=== PATIENT | female | born 1970 | race Caucasian/White ===

== ENCOUNTER 2023-10-15 08:54 | Outpatient (REF) | payer BC, SELFPAY ==
--- NOTE | ~2023-10-15 | XR_ITS ---
EXAM: X-RAYS BILATERAL HIPS CLINICAL INFORMATION: Pain in unspecified hip. TECHNIQUE: AP view of the pelvis. AP and frog-lateral views of each hip. COMPARISON: None. FINDINGS: Right hip: Mild narrowing with degenerative changes. Mild degenerative changes in the right sacroiliac joint. Left hip: Mild narrowing with degenerative changes left hip. Small calcification in the soft tissues lateral to the left acetabular roof. Mild degenerative changes in the left sacroiliac joint. Degenerative changes in the imaged lower lumbar spine. XR/XR hip RT min 2V IMPRESSION: 1. Mild degenerative changes bilateral hips. 2. Mild degenerative changes in the bilateral sacroiliac joints. 3. Additional imaging with CT scan or MRI should be considered if there is clinical concern for fracture or other underlying pathology.
--- NOTE | ~2023-10-15 | XR_ITS ---
EXAM: X-RAYS BILATERAL HIPS CLINICAL INFORMATION: Pain in unspecified hip. TECHNIQUE: AP view of the pelvis. AP and frog-lateral views of each hip. COMPARISON: None. FINDINGS: Right hip: Mild narrowing with degenerative changes. Mild degenerative changes in the right sacroiliac joint. Left hip: Mild narrowing with degenerative changes left hip. Small calcification in the soft tissues lateral to the left acetabular roof. Mild degenerative changes in the left sacroiliac joint. Degenerative changes in the imaged lower lumbar spine. XR/XR hip LT min 2V IMPRESSION: 1. Mild degenerative changes bilateral hips. 2. Mild degenerative changes in the bilateral sacroiliac joints. 3. Additional imaging with CT scan or MRI should be considered if there is clinical concern for fracture or other underlying pathology.
== END 2023-10-15 08:55 | disposition home or self-care (01) ==
LOC: HO.HOSX 08:54
PROVIDERS: Visit Provider Physician Assistant
DX: M25.552 Pain in left hip (principal); M25.551 Pain in right hip
CPT/HCPCS: 73502

== ENCOUNTER 2023-10-15 10:57 | Outpatient (AMB) | payer BC, SELFPAY ==
--- NOTE | 2023-10-15 11:08 | A.OFFVIS_ITS ---
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 No hx of injury. Patient reports ongoing pain for about 6 months. She states that her pain is worse on the right than the left hip. Pain is more on the both sides of the glutes. She express that her right hip pain sometimes down her right knee. Patient finds relief with biofrezze. Allergies Penicillins Allergy (Unknown, Verified 10/15/23 11:21) Rash acetaminophen [From Vicodin] Allergy (Verified 10/15/23 11:21) Rash hydrocodone [From Vicodin] Allergy (Verified 10/15/23 11:21) Rash sulfamethoxazole [From Bactrim] Allergy (Verified 10/15/23 11:21) face itches trimethoprim [From Bactrim] Allergy (Verified 10/15/23 11:21) face itches HPI HPI GAMING HOST - B/L Hip pain: Details: 53-year-old female who presents in the office today, as a new patient, for an evaluation of bilateral hip pain. Patient reports no history of an injury to the bilateral hips. She states the pain has been ongoing for 6 months. She claims her pain is greater on the right hip than the left hip. Confirms pain on both sides of the glutes that radiates to her lower back. She states the right hip pain will radiate down to her right knee on one occasion. She finds relief with the use of Biofreeze. [facility] Social History (Updated 10/15/23 @ 11:24 by María Owens) Alcohol intake: current Alcohol intake frequency: holidays/special occasions only Patient Tobacco Use Status: Never used Tobacco Current occupational status: employed Current occupation: realtor Review of Systems Const All systems reviewed & are unremarkable except as noted in HPI and below Physical Exam Const General: cooperative and no acute distress Orientation/consciousness: patient oriented x3 Resp Effort & Inspection: normal respiratory effort and able to speak in complete sentences Cardio Peripheral pulses: Peripheral pulses 2+ throughout Skin General skin exam: no rashes or lesions noted Neuro General: patient oriented x3 Extrem Other: Bilateral hips: Normal to inspection. No ecchymosis, erythema, or edema. Full hip ROM in all planes. Tenderness to palpation over the bilateral greater trochanteric bursa. 5/5 strength with resisted hip flexion, knee extension, abduction, and abduction. Able to perform straight leg raise. NVI. Assessment & Plan Assessment & Plan (1) Lumbar radiculopathy: Code(s): M54.16 - Radiculopathy, lumbar region Category: Medical Plan Ms. Ramires is a 53-year-old female who presents in the office today, as a new patient, for an evaluation of bilateral hip pain. Patient reports no history of an injury to the bilateral hips. She states the pain has been ongoing for 6 months. She claims her pain is greater on the right hip than the left hip. Confirms pain on both sides of the glutes that radiates to her lower back. She states the right hip pain will radiate down to her right knee on one occasion. She finds relief with the use of Biofreeze. At this time, I feel that most of her pain is coming from her lower back, and this must be evaluated prior to further treatment of the bilateral hips. A refer ral to Physiatry was placed in the office today for further evaluation and treatment. Follow up will be PRN, or sooner if needed. X-rays of the pelvis which were obtained while in the office today and were reviewed by me, Shannan Ronquillo PA-C, revealed no acute fractures or dislocations. Orders: Orders XR hip LT min 2V 10/15/23 M25.559 - Pain in unspecified hip Patient Instructions: Scribed by Corie Merino associate medical director, for Shannan Ronquillo PA-C on 10/15/2023 at 11:00 am, EST. Coding Level of Care Code New Pt Level 4 (87117) Diagnoses Lumbar radiculopathy M54.16
== END 2023-10-15 11:52 | disposition home or self-care (01) ==
PROVIDERS: PCP Family Medicine; Visit Provider Physician Assistant
DX: M54.16 Radiculopathy, lumbar region (principal)
CPT/HCPCS: 99204

== ENCOUNTER 2023-11-14 10:50 | Outpatient (AMB) | payer BC, SELFPAY ==
--- NOTE | 2023-11-14 10:52 | MHC.OFFVIS ---
Intake Visit Reasons: [employer]ODU[employer] G[employer]ER-Lower back pain Intake Note: Nayeli is a 53 year old female who presents today as a new patient for a evaluation of lower back pain. Patient was recently seen here and was evaluated for bilateral hip pain, she was referred to physiatry. She states the pain medications do help a little. She states she did have 2 breast reductions. She states the pain in constant. She states the pain has radiated to her legs at times. Allergies Penicillins Allergy (Unknown, Verified 11/14/23 10:52) Rash acetaminophen [From Vicodin] Allergy (Verified 11/14/23 10:52) Rash hydrocodone [From Vicodin] Allergy (Verified 11/14/23 10:52) Rash sulfamethoxazole [From Bactrim] Allergy (Verified 11/14/23 10:52) face itches trimethoprim [From Bactrim] Allergy (Verified 11/14/23 10:52) face itches Medication List - Last Reconciled 11/14/23 by Lindsay Quiros MD bupropion HCl XL 300 mg PO DAILY clonazepam mg PO cyclobenzaprine 10 mg PO BID PRN methylphenidate HCl ER 54 mg PO QAM mupirocin 2% 1 appl topical BID-TID spironolactone 50 mg PO BID topiramate 100 mg PO DAILY valacyclovir 500 mg PO DAILY HPI Comments Details: Chronic lower back pain, constant, daily, lower back, relieved with forward bending and stretched. Had gone to chiropractor few times only. Never saw a specialist in the past. 2 months ago, as she stood up from sitting position, had sudden onset of back/hip pain. It was more buttocks or lateral hip. Does not go the groin. Radiates to thighs most of the pain. No numbness. No weakness. No bladder/bowel changes. No PT yet. OTC meds only for Tylenol and anti-inflammatory. [facility] Medical History (Updated 11/14/23 @ 11:19 by Lindsay Quiros MD) Myofascial pain Lumbar paraspinal muscle spasm Piriformis muscle pain Sacroiliac joint dysfunction of both sides Social History (Updated 10/15/23 @ 11:24 by María Owens) Alcohol intake: current Alcohol intake frequency: holidays/special occasions only Patient Tobacco Use Status: Never used Tobacco Current occupational status: employed Current occupation: realtor Review of Systems Const All systems reviewed & are unremarkable except as noted in HPI and below Physical Exam Constitutional: Patient appears to be in no acute distress, well nourished and well developed. Patient was appropriately conversant and oriented. Good historian. MSK: No specific abnormalities found on inspection of the spine and all extremities. Sensitive to touch on multiple areas including lumbar paraspinals, bilateral SI joints, piriformis and gluteus, greater trochanters. Lumbar ROM was full. Bilateral hip, knee and ankle ROM WNL. No ligamentous laxity or crepitance. No increased effusion. Straight-leg raising test negative. FABERE test positive bilateral. Strength is 5/5 in all muscle groups tested. No increased tone noted. Neurological: Neurologic examination of the upper and lower extremities was nonfocal with intact sensation, muscle stretch reflexes and without focal motor deficits . Kat?s negative bilaterally. Babinski was down going bilaterally. Clonus was negative. Gait is non-antalgic without loss of balance. Results Reviewed Results Reviewed: Ordering Physician: Shannan Ronquillo PA-C Date of Service: 10/15/23 Procedure(s): XR hip RT min 2V Accession Number(s): [id number] cc: Shannan Ronquillo PA-C~ EXAM: X-RAYS BILATERAL HIPS CLINICAL INFORMATION: Pain in unspecified hip. TECHNIQUE: AP view of the pelvis. AP and frog-lateral views of each hip. COMPARISON: None. FINDINGS: Right hip: Mild narrowing with degenerative changes. Mild degenerative changes in the right sacroiliac joint. Left hip: Mild narrowing with degenerative changes left hip. Small calcification in the soft tissues lateral to the left acetabular roof. Mild degenerative changes in the left sacroiliac joint. Degenerative changes in the imaged lower lumbar spine. XR/XR hip RT min 2V IMPRESSION: 1. Mild degenerative changes bilateral hips. 2. Mild degenerative changes in the bilateral sacroiliac joints. 3. Additional imaging with CT scan or MRI should be considered if there is clinical concern for fracture or other underlying pathology. I reviewed records from the following: Orthopedics Assessment & Plan Assessment & Plan (1) Sacroiliac joint dysfunction of both sides: Code(s): M53.3 - Sacrococcygeal disorders, not elsewhere classified Category: Medical (2) Piriformis muscle pain: Code(s): M79.18 - Myalgia, other site Category: Medical (3) Lumbar paraspinal muscle spasm: Code(s): M62.830 - Muscle spasm of back Category: Medical (4) Myofascial pain: Code(s): M79.18 - Myalgia, other site Category: Medical Plan Chronic back pain with recent worsening. I think she has multiple pain generators, primarily stemming from myofascial syndrome, and affecting SI joint as well. Do not see signs of lumbar radiculopathy or myelopathy on exam. For SI joints, we discussed option for steroid injection. Patient would like to proceed. Referring her to pain management for the injection under fluoroscopy or ultrasound guidance. She wants to trial some form of injection. We talked about possibly trigger point injections here in the office, targeting quadratus lumborum and gluteus muscles. Make consider piriformis injection. We will schedule series of trigger point injections. We could try a muscle relaxer, cyclobenzaprine 10 mg q.h.s.. Can add additional 5-10 mg during the day if needed. No alcohol drinking or driving after taking medication. Discussed side effects and precautions needed. Lastly, she should go to physical therapy, for myofascial release, pelvic stabilization, SI joint symmetry. Referral placed. Assessment and plan discussed with patient, and patient was agreeable. All questions were answered thoroughly. Lindsay Quiros MD, [place] Board Certified, [place] Board of [employer] Medicine and Rehabilitation (ABPMR) Board Certified, [place] Board of Electrodiagnostic Medicine (ABEM) Orders: Orders PT Evaluation and Treatment Today M53.3 - Sacrococcygeal disorders, not elsewhere classified, M62.830 - Muscle spasm of back, M79.18 - Myalgia, other site Referrals Pain Management Referral M53.3 - Sacrococcygeal disorders, not elsewhere classified, M62.830 - Muscle spasm of back, M79.18 - Myalgia, other site Medications: New cyclobenzaprine start with 10mg at bedtime if not making her too drowsy, can add 10mg during the day if needed 10 mg PO BID PRN 30 tabs 0RF muscle spasm Coding Level of Care Code New Pt Level 4 (55617) Diagnoses Sacroiliac joint dysfunction of both sides M53.3 Piriformis muscle pain M79.18 Lumbar paraspinal muscle spasm M62.830 Myofascial pain M79.18
== END 2023-11-14 11:34 | disposition home or self-care (01) ==
PROVIDERS: PCP Family Medicine; Visit Provider Physical Medicine & Rehabilitation
DX: M53.3 Sacrococcygeal disorders, not elsewhere classified (principal); M79.18 Myalgia, other site
CPT/HCPCS: 99204

== ENCOUNTER → 2023-11-14 10:50 | Outpatient (BNVA) | payer BC, SELFPAY | PROVIDERS: PCP Family Medicine; Visit Provider Physical Medicine & Rehabilitation ==

== ENCOUNTER 2023-11-22 06:22 | Outpatient (REF) | payer BC, SELFPAY ==
--- NOTE | ~2023-11-22 | FL_ITS ---
EXAMINATION: XR FLUOROSCOPY WITH IMAGES CLINICAL INFORMATION: Sacrococcygeal disorder. COMPARISON: None available. TECHNIQUE: Fluoroscopy Supervised By: Dr. Orville Kirkland. Fluoroscopy Time: 0.1 minute. Cumulative Dose: 2.38 mGy. DAP: 0.164 Gycm2. Images: 3. FINDINGS: Intraoperative fluoroscopy and spot films were performed during a procedure in the OR. [place] are seen overlying the mid portions of both the right and left SI joints. Please correlate with Dr. Orville Kirkland's report for complete details. FL/FL guidance in treatment room IMPRESSION: Intraoperative fluoroscopy and spot films were obtained. Please see Dr. Orville Kirkland's report for complete details.
== END 2023-11-22 06:23 | disposition home or self-care (01) ==
LOC: CF 06:22
PROVIDERS: Visit Provider Internal Medicine
DX: M53.3 Sacrococcygeal disorders, not elsewhere classified (principal)
CPT/HCPCS: 27096; J2795; J3301

== ENCOUNTER 2023-11-22 11:08 | Outpatient (AMB) | payer BC, SELFPAY ==
--- NOTE | 2023-11-22 11:29 | MHC.OFFVIS ---
Intake Visit Reasons: Grady SIJ inj Allergies Penicillins Allergy (Unknown, Verified 11/20/23 11:07) Rash acetaminophen [From Vicodin] Allergy (Verified 11/20/23 11:07) Rash hydrocodone [From Vicodin] Allergy (Verified 11/20/23 11:07) Rash sulfamethoxazole [From Bactrim] Allergy (Verified 11/20/23 11:07) face itches trimethoprim [From Bactrim] Allergy (Verified 11/20/23 11:07) face itches HPI HPI Grady SIJ inj: Details: Patient presents for scheduled procedure, referred to us for sacroiliac joint injection by Dr. Marvin. Denies any recent cough, cold, infection, fever or other significant changes in medical history since last office visit. 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 Immediately prior to starting the procedure, a time-out safety check was conducted. The patient's identification, procedure name, procedure site, and procedure laterality were confirmed with the patient. ? Patient was placed prone on the fluoroscopy table and the lumbosacral area was prepped using ChloraPrep and draped with sterile drapein standard fashion. The C-arm was rotated in a contralateral oblique fashion until the medial border of the iliac crest no longer foreshadowed the posterior sacroiliac joint line. The skin and subcutaneous tissue was anesthetized using 1 mL of 0.75% plain lidocaine with 1.5-inch 25-gauge needle in the middle region of the joint line.? A 3.5-inch 22-gauge spinal needle with small bend on the tip was slowly advanced towards the joint line, coaxial to the x-ray beam. Once bony content was obtained, the needle was easily slid into the intra-articular space.? Intra-articular needle position was confirmed using lateral fluoroscopy.? A total volume of 2.5mL of solution containing 40 mg triamcinolone and rest 0.5% ropivacaine was injected intra-articularly. The stylet was reinserted and needle was removed. The same procedure was repeated on the other side. The patient tolerated the procedure well. Patient denied any lower extremity weakness or numbness. Patient was observed for 30 min and was discharged after fulfilling the standard discharge criteria. Coding 75211 - Sacroiliac (Bilateral) Procedure code (CPT) selection complete Assessment & Plan Assessment & Plan (1) Sacroiliac joint dysfunction of both sides: Code(s): M53.3 - Sacrococcygeal disorders, not elsewhere classified Category: Medical Plan Patient is status post bilateral intra-articular sacroiliac joint steroid injections. Patient tolerated procedure well and was discharged home in stable condition with discharge instructions. All questions were answered. We will follow-up via telephone or in clinic to assess response to therapy. A follow-up appointment was made during today's visit. Orders: Orders FL guidance in treatment room Today M53.3 - Sacrococcygeal disorders, not elsewhere classified Coding Level of Care Code Procedure Only Diagnoses Sacroiliac joint dysfunction of both sides M53.3 CPT Codes Coding - Joint 9: 40897 - Sacroiliac ([id number])
== END 2023-11-22 12:04 | disposition home or self-care (01) ==
LOC: HO.PMCPRC 11:08
PROVIDERS: PCP Family Medicine; Visit Provider Internal Medicine
DX: M53.3 Sacrococcygeal disorders, not elsewhere classified (principal)
CPT/HCPCS: 27096

== ENCOUNTER 2023-12-05 10:52 | Outpatient (AMB) | payer BC, SELFPAY ==
--- NOTE | 2023-12-05 10:44 | A.OFFVIS_ITS ---
Intake Visit Reasons: s/p keith SIJ inj Allergies Penicillins Allergy (Unknown, Verified 11/20/23 11:07) Rash acetaminophen [From Vicodin] Allergy (Verified 11/20/23 11:07) Rash hydrocodone [From Vicodin] Allergy (Verified 11/20/23 11:07) Rash sulfamethoxazole [From Bactrim] Allergy (Verified 11/20/23 11:07) face itches trimethoprim [From Bactrim] Allergy (Verified 11/20/23 11:07) face itches HPI HPI s/p keith SIJ inj: Details: 53-year-old female who presents via televisit for status post bilateral sacroiliac joint injection The patient reports 75% relief following the procedure. She reports some soreness after the procedure for about 5 days, that has since gotten better. She reports some pain in the tailbone area, which she feels is due to degenerative arthritis. She had to postpone her physical therapy due to this flare-up of her tailbone pain, but is now scheduled to initiate it next week. Past Procedure: 11/22/23: Sacroiliac joint injection bilateral: 75%or more relief PFS Medical History Myofascial pain Lumbar paraspinal muscle spasm Piriformis muscle pain Sacroiliac joint dysfunction of both sides Social History Alcohol intake: current Alcohol intake frequency: holidays/special occasions only Patient Tobacco Use Status: Never used Tobacco Current occupational status: employed Current occupation: realtor Review of Systems Const All systems reviewed & are unremarkable except as noted in HPI and below Telehealth Telehealth [facility]health [facility] Location of provider rendering services: practice address Location of patient: address on file Patient Identification confirmed using: Name, : Yes Telehealth method: video Patient verbally consented to treatment: Yes Patient verbally consented to billing insurance company: Yes Patient informed of any privacy concerns related to visit: Yes Minutes spent on Phone/Video with Pt.: 8 Results Reviewed Results Reviewed: No imaging is available for review Assessment & Plan Assessment & Plan (1) Sacroiliac joint dysfunction of both sides: Code(s): M53.3 - Sacrococcygeal disorders, not elsewhere classified Category: Medical Plan She will initiate formal physical therapy next week. Advised to continue physical therapy for 3 months and follow up with Dr. Marvin. If her symptoms return sooner than 3 months or physical therapy is not helpful for her low back symptoms, we can consider MR imaging of the lumbar spine. Scribed for Dr. Kirkland by Lenore Pabon, medical technologist prn, on 12/05/2023. I, Dr. Kirkland, have personally reviewed and agree with the information entered by the scribe. Coding Level of Care Code Tele Est Pt Level 3 (21142) Diagnoses Sacroiliac joint dysfunction of both sides M53.3
== END 2023-12-05 10:53 | disposition home or self-care (01) ==
LOC: HO.PMC 10:52
PROVIDERS: PCP Family Medicine; Visit Provider Internal Medicine
DX: M53.3 Sacrococcygeal disorders, not elsewhere classified (principal)
CPT/HCPCS: 99213

== ENCOUNTER → 2023-12-05 10:52 | Outpatient (BNVA) | payer BC, SELFPAY | PROVIDERS: PCP Family Medicine; Visit Provider Internal Medicine ==

== ENCOUNTER 2024-03-18 15:00 | Outpatient (RCR) | payer BC, SELFPAY ==
--- NOTE | 2024-01-11 16:10 | MHC.PT.EP ---
[facility] [place] Office [place] Office [place] Office [address] Laura Drew [address] [phone] F: [phone] F: [phone] F: [phone] F: [phone] Physical Therapy Plan of Care Date of Evaluation: 01/11/24 Date of Surgery: NA Diagnosis: SACROCOCCYGEAL DISORDERS Assessment: Pt IS 53 YO F REFERRED TO PT FROM [facility] WITH SCROCOCCYGEAL DISORDER. Pt WITH C/O CHRONIC BACK PAIN (20 YEARS). HAD INJECTIONS WITHOUT SIGNIG RELIEF. PRESENTS WITH PELVIC ASYMMETRY/TIGHT LE MMS. SHOULD BENEFIT FROM PT TO ADDRESS THESE ISSUES Frequency and Duration: The patient will be seen 1X/BI-WEEKLY Short Term Goals: 1. I HEP WITH DC EX PLAN 2. IMPROVED POSTURE AWARENESS AND AWARENESS BACK CARE Power Plant Technician Goals: 1. DECREASED TTP GLUT MMS/LAT SACRUM 2. DECREASED BACK PAIN AT LEAST 50% WITH ADLS Treatment Plan: Modalities to reduce pain, spasms and effusion. Manual therapy to restore motion and function. Therapeutic exercise to improve strength and flexibility. Neuromuscular re-education for posture and balance. Therapeutic activities to return to functional activities of daily living. Electronically signed by: RADHA GARRIDO PT Please sign and return to therapist. Thank you for your referral.
--- NOTE | 2024-04-29 10:40 | MHC.PT.DC ---
[facility] [place] Office [place] Office [place] Office [address] Laura Drew [address] [phone] F: [phone] F: [phone] F: [phone] F: [phone] Physical Therapy Discharge Report Diagnosis: SACROCOCCYGEAL DISORDERS Date of Surgery: NA Date of Evaluation: 01/11/24 Date of Discharge: 04/29/24 Treatments to Date: 4 Cancellations to Date: No Shows to Date: Discharge Status: Recommend MD Follow-up Visit Non-compliance Discharge Summary: PER ASSESSMENT AT LAST APPT ON 03/18 DOES NOT KNOW EXS WITHOUT USE OF PAPER. HAS ONE APPT LEFT (APPTS HAVE HAD LARGE TIME FRAMES IN BETWEEN). DOES NOT REPORT IMPROVED PAIN. Pt LAST SEEN ON 03/18, SHE THEN CANCELLED APPTS FOR 03/28, 04/08, 04/15 WILL DC AT THIS TIME Electronically signed by: RADHA GARRIDO PT Please sign and return to therapist. Thank you for your referral.
== END 2024-04-29 10:40 | disposition home or self-care (01) ==
LOC: HO.PT 15:00
PROVIDERS: PCP Family Medicine; Visit Provider Physical Medicine & Rehabilitation
DX: M53.3 Sacrococcygeal disorders, not elsewhere classified (principal); M79.18 Myalgia, other site
CPT/HCPCS: 97110; 97140; 97161; 97535

== ENCOUNTER 2024-12-15 13:31 | Outpatient (AMB) | payer BC, SELFPAY ==
--- NOTE | 2024-12-15 13:36 | MHC.OFFVIS ---
Vital Signs 12/15/24 13:38 Height 5 ft 1.5 in Weight 127 lb BMI 23.6 BP 140/83 H Blood Pressure Location Lt brachial Position Sitting Respiration 16 Pulse 87 Pulse Source Pulse Oximeter Pulse Oximetry (%) 98 Oxygen Delivery Method Room Air Intake Visit Reasons: Back pain alleviation. BADLY! Family Practice Nurse Practitioner Required: No Allergies Penicillins Allergy (Unknown, Verified 12/15/24 13:39) Rash hydrocodone (From Vicodin) Allergy (Verified 12/15/24 13:39) Rash sulfamethoxazole (From Bactrim) Allergy (Verified 12/15/24 13:39) face itches trimethoprim (From Bactrim) Allergy (Verified 12/15/24 13:39) face itches Medication List - Last Reconciled 12/15/24 by Lesa Cobos LPN bupropion HCl XL 300 mg PO DAILY clonazepam mg PO methylphenidate HCl ER 54 mg PO QAM mupirocin 2% 1 appl topical BID-TID spironolactone 50 mg PO BID topiramate 100 mg PO DAILY valacyclovir 500 mg PO DAILY HPI HPI Back pain alleviation. BADLY!: Details: History of Present Illness The patient is a 54-year-old female presenting with sacroiliac joint dysfunction and chronic pain management. She received bilateral sacroiliac joint injections in November 2023, which provided approximately 75% pain relief initially, but the relief was not sustained beyond 3 months. The patient completed physical therapy but continues to experience soreness and mild improvement in symptoms. In late November, she experienced a sudden exacerbation of pain while preparing for a vacation, which limited her activities significantly during the trip. She managed the pain with ibuprofen and heat application, but the pain persisted, preventing her from participating in family activities. The patient reports a history of chronic, smoldering pain, which she manages without regular use of painkillers due to personal concerns about medication use. Her had a history of chronic pain and medication misuse, which influences her cautious approach to pain management. Pain Description - Onset: Sudden exacerbation in late November while preparing for vacation - Quality: Chronic, smoldering pain - Location: Sacroiliac joint area - Exacerbating factors: Physical activity, uneven surfaces - Relieving factors: Ibuprofen, heat application - Interference: Limits participation in family activities Physical Exam - Musculoskeletal: Evert test negative, Gaenslen test positive, tenderness overlying the sacroiliac joint Pain Management - Affect: Pain limits participation in family activities - Analgesia: Ibuprofen used for pain relief, with previous sacroiliac joint injections providing temporary relief - Adverse Effects: No adverse effects from current pain management reported - Activities of Daily Living: Pain impacts ability to engage in physical activities and family events - Aberrant Drug Related Behaviors: No aberrant behaviors reported; patient cautious due to 's history of medication misuse [facility] Medical History Myofascial pain Lumbar paraspinal muscle spasm Piriformis muscle pain Sacroiliac joint dysfunction of both sides Social History Alcohol intake: current Alcohol intake frequency: holidays/special occasions only Patient Tobacco Use Status: Never used Tobacco Current occupational status: employed Current occupation: realtor Physical Exam Vital Signs: Last Vital Signs Pulse 87 12/15/24 13:38 Resp 16 12/15/24 13:38 BP 140/83 H 12/15/24 13:38 Pulse Ox 98 12/15/24 13:38 Oxygen Delivery Method Room Air 12/15/24 13:38 BMI result Body Mass Index 23.6 Assessment & Plan Assessment & Plan (1) Sacroiliac joint dysfunction of both sides: Code(s): M53.3 - Sacrococcygeal disorders, not elsewhere classified Category: Medical Plan Plan - Plan for repeat bilateral therapeutic sacroiliac joint injections under fluoroscopy pending insurance authorization - Consideration of SI belt for additional support, with recommendation to visit a local store for fitting - Continue use of ibuprofen as needed for pain management Patient was informed and verbally consented to the use of an ambient scribe for clinic note documentation during this visit. Discussion Notes I discussed with the patient the plan to proceed with bilateral sacroiliac joint injections under fluoroscopy, pending insurance authorization. We also talked about the potential benefits of using an SI belt for additional support and advised visiting a local store for fitting. The patient was informed about continuing ibuprofen for pain management as needed. We will follow up once insurance approval is obtained. Patient Instructions - Await insurance authorization for sacroiliac joint injections - Visit a local store to be fitted for an SI belt - Continue taking ibuprofen as needed for pain relief Coding Level of Care Code Est Pt Level 3 (37832) Diagnoses Sacroiliac joint dysfunction of both sides M53.3
[2024-12-15 13:38] VITALS: BP 140/83; PULSE 87; RESP 16; O2SAT 98; BMI 23.6
== END 2024-12-15 14:17 | disposition home or self-care (01) ==
LOC: HO.PMC 13:32
PROVIDERS: PCP Family Medicine; Visit Provider Internal Medicine
DX: M53.3 Sacrococcygeal disorders, not elsewhere classified (principal)
CPT/HCPCS: 99213

== ENCOUNTER 2025-01-29 08:23 | Outpatient (REF) | payer BC, SELFPAY ==
--- NOTE | ~2025-01-29 | FL_ITS ---
EXAMINATION: FL GUIDANCE ONLY HISTORY: M53.3 - Sacrococcygeal disorders, not elsewhere classified COMPARISON: None available. TECHNIQUE: Fluoroscopy time: 0.2 minutes. Cumulative Dose: 2.15 mGy. DAP: 0.51131 mGym2 Images: 3. FINDINGS: Fluoroscopic spot films of the pelvis demonstrate needles in the regions of the bilateral sacroiliac joints. FL/FL guidance in treatment room IMPRESSION: Fluoroscopy during procedure. Please see procedure report for additional information. Electronically signed by: Renny Rodgers MD 01/29/2025 03:01 PM EDT
--- OUTSIDE RECORDS SUMMARY | 2025-01-29 08:58 | XMS_ITS | Encounter Summary ---
Author Organization [facility] Address [address] [place] [address] Phone Care Team Providers Care Food Adviser Name Role Phone Louise Roldan ARLET Unavailable Phil Menjivar MD Unavailable [phone] Yuridia Dumont NP Unavailable [phone] Percy Werner MD Unavailable Alexandre Morton MD Unavailable [phone] Phil Menjivar MD Primary Care Provider + [phone] Phil Menjivar MD Unavailable [phone] Encounter Details Date Type Department Care Team (Late st Contact Info) Description 04/24/2019 Ancillary Orders [facility] Medicine [address] [place] [address] Phil Menjivar MD [address] [facility] [place], [place] [id number] [email or web address] Social History Tobacco Use Types Packs/Day Years Used Date Smoking Tobacco: Former Cigarettes 0.5 5 1 999 - 2004 Smokeless Tobacco: Never Alcohol Use Standard Drinks/Week Comments Yes 0 (1 standard drink = 0.6 oz pur e alcohol) Comments No Sex and Gender Information Value Date Recorded Sex Assigned at Not on file Legal Sex Female 9:35 PM EDT Gender Identity Not on file Sexual Orientation Not on file documented as of this encounter Plan of Treatment Not on file documented as of this encounter Visit Diagnoses Not on filedocumented in this encounter Additional Health Concerns Infection Onset Date Last Indicated Resolved Time CoV-Exposed Comment:Recent close contact documented in the COVID-19 PCR/PRO order 07/08/2020 07/09/2020 07/23/2020 1:[address] CoV-Presumed 07/25/2021 07/25/2021 08/15/2021 1:21 AM EDT COVID-19 06/18/2023 06/18/2023 07/09/2023 1:21 AM EST Assessment Noted Time PHQ-2 Depression Total Score: 0 09/26/19 11:07 AM EDT documented as of this encounter Care Teams Food Adviser Relationship Specialty Start Date End Date Phil Menjivar MD [address] [place] [address] PCP - General 06/07/17 Louise Roldan CNM [address] [place] [address] Historical LMR Provider 03/22/17 06/11/21 Phil Menjivar MD [address] [place] [address] Historical LMR Provider 03/22/17 Yuridia Dumont NP [address] [place] [address] Historical LMR Provider 03/22/17 2 Percy Werner MD [address] [place] [address] [email or web address] Historical LMR Provider 03/22/17 Alexandre Morton MD [address] [place] [address] Floor 1 [place] [address] [email or web address] Historical LMR Provider 03/22/17 06/11/21 Phil Menjivar MD [address] [place] [address], [address] [place] [address] [email or web address] Insurance Assigned Provider 09/08/23 documented as of this encounter Additional Source Comments The information contained in this document represents components of the legal health record. It is not the complete legal health record.[facility]
--- OUTSIDE RECORDS SUMMARY | 2025-01-29 08:58 | XMS_ITS | Encounter Summary ---
Author Organization [facility] Address [address] [place] [address] [place] [address] Phone Care Team Providers Care Gaming Table Operator Name Role Phone Louise Roldan ARLET Unavailable Phil Menjivar MD Unavailable [phone] Yuridia Dumont NP Unavailable [phone] Percy Werner MD Unavailable Alexandre Morton MD Unavailable [phone] Phil Menjivar MD Primary Care Provider + [phone] Phil Menjivar MD Unavailable [phone] Encounter Details Date Type Department Care Team (Late st Contact Info) Description 04/02/2020 Procedure Pass [facility], [facility] [address] [place] [address] Social History Tobacco Use Types Packs/Day Years Used Date Smoking Tobacco: Former Cigarettes 0.5 5 1 999 - 2004 Smokeless Tobacco: Never Alcohol Use Standard Drinks/Week Comments Yes 0 (1 standard drink = 0.6 oz pur e alcohol) 0-2 drinks a day Comments No Sex and Gender Information Value [...] Noted Time PHQ-2 Depression Total Score: 0 04/02/20 1:48 PM EDT documented as of this encounter Care Teams Gaming Table Operator Relationship Specialty Start Date End Date Phil Menjivar MD [address] [place] [address] PCP - General 06/07/17 Louise Roldan CNM [address] [place] [address] Historical LMR Provider 03/22/17 06/11/21 Phil Menjivar MD [address] [place] [address] Historical LMR Provider 03/22/17 Yuridia Dumont LOCKSTITCH BACK MAKER [address] [place] [address] Historical LMR Provider 03/22/17 2 Percy Werner MD [address] [place] [address] Historical LMR Provider 03/22/17 Alexandre Morton MD [address] [facility] Floor 1 [place] [address] [email or web address] Historical LMR Provider 03/22/17 06/11/21 Phil Menjivar MD [address] [facility] [place] [address] [email or web address] Insurance Assigned Provider 09/08/23 documented as of this encounter Additional Source Comments The information contained in this document represents components of the legal health record. It is not the complete legal health record.[facility]
--- OUTSIDE RECORDS SUMMARY | 2025-01-29 08:59 | XMS_ITS | Encounter Summary ---
Author Organization [facility] Address [address] [place] [address] [place] [address] Phone Care Team Providers Care International Exchange Coordinator Name Role Phone Louise Roldan ARLET Unavailable Phil Menjivar MD Unavailable [phone] Yuridia Dumont NP Unavailable [phone] Percy Werner MD Unavailable Alexandre Morton MD Unavailable [phone] Phil Menjivar MD Primary Care Provider + [phone] Phil Menjivar MD Unavailable [phone] Encounter Details Date Type Department Care Team (Late st Contact Info) Description 06/10/2019 Procedure Pass [place] Admitting Dept - Virtual Department [address] [place] [address] Social History Tobacco Use Types Packs/Day Years [...] documented as of this encounter Care Teams International Exchange Coordinator Relationship Specialty Start Date End Date Phil Menjivar MD [address] [place] [address] PCP - General 06/07/17 Louise Roldan CNM [address] [place] [address] Historical LMR Provider 03/22/17 06/11/21 Phil Menjivar MD [address] [place] [address] Historical LMR Provider 03/22/17 Yuridia Dumont CLAMPER [address] [place] [address] Historical LMR Provider 03/22/17 2 Percy Werner MD [address] [place] [address] Historical LMR Provider 03/22/17 Alexandre Morton MD [address] [facility] Floor 1 [place] [address] [email or web address] Historical LMR Provider 03/22/17 06/11/21 Phil Menjivar MD [address] [facility] [place] [address] [email or web address] Insurance Assigned Provider 09/08/23 documented as of this encounter Additional Source Comments The information contained in this document represents components of the legal health record. It is not the complete legal health record.[facility]
--- OUTSIDE RECORDS SUMMARY | 2025-01-29 08:59 | XMS_ITS | Encounter Summary ---
Author Organization [facility] Address [address] [place] [address] Phone Care Team Providers Care Sample Sawyer Name Role Phone Phil Menjivar MD Unavailable [phone] Percy Werner MD Unavailable Phil Menjivar MD Primary Care Provider + [phone] Phil Menjivar MD Unavailable [phone] Encounter Details Date Type Department Care Team (Latest Contact Info) Description 11/23/2021 Ancillary Orders [facility] Medicine [address] [place] [address] Phil Menjivar MD [address] [facility] [place] [address] [email or web address] Abnormal mammogram of both breasts Social History Tobacco Use Types Packs/Day Years [...] on file documented as of this encounter Results * BI MAMMOGRAM SCREENING WITH TOMOSYNTHESIS WITH CAD (BILATERAL) (11/23/2021 11:07 AM EDT) Anatomical Region Laterality Modality Breast Left, Breast Right, Breast Bilateral Bila teral Mammography 11/24/2021 9:03 AM EDT Impressions 11/24/2021 9:05 AM EDT No mammographic evidence of malignancy. Recommend routine annual surveillance. BI-RADS CATEGORY: 2 - Benign finding. DENSITY: There are scattered fibroglandular densities. Narrative 11/24/2021 9:05 AM EDT 51-year-old female. Comparison made to previous on 04/12/2020 and as far back as 11/25/2009. Interpretation made in conjunction with computer-aided detection and tomosynthesis. There are scattered areas of fibroglandular density. Chronic reduction mammoplasty changes. There are no suspicious masses, areas of architectural distortion, or suspicious clusters of microcalcifications. Procedure Note Kaushik Childers MD - 11/24/2021 51-year-old female. Comparison made to previous on 04/12/2020 and as farback as 11/25/2009. Interpretation made in conjunction with computer-aideddetection and tomosynthesis. There are scattered areas of fibroglandular density. Chronic reductionmammoplasty changes. There are no suspicious masses, areas of architectural distortion, orsuspicious clusters of microcalcifications. IMPRESSION: No mammographic evidence of malignancy. Recommend routine annualsurveillance. BI-RADS CATEGORY: 2 - Benign finding. DENSITY: There are scattered fibroglandular densities. Phil Menjivar MD IMG MG EXAMS Final Resu lt documented in this encounter Visit Diagnoses Diagnosis Abnormal mammogram of both breasts Abnormal mammogram of both breasts documented in this encounter Additional Health Concerns Infection Onset Date Last Indicated Resolved Time COVID-19 06/18/2023 06/18/2023 07/09/2023 1:21 AM EST Assessment Noted Time PHQ-2 Depression Total Score: 0 10/12/19 22 4:05 PM EDT documented as of this encounter Care Teams Sample Sawyer Relationship Specialty Start Date End Date Phil Menjivar MD [address] [place] [address], [address] [place] [address] PCP - General 06/07/17 Phil Menjivar MD [address] [place] [address], [address] [place] [address] Historical LMR Provider 03/22/17 Percy Werner MD [address] [place] [address], [address] [address] Historical LMR Provider 03/22/17 Phil Menjivar MD [address] [place] [address], [address] [place] [address] Insurance Assigned Provider 09/08/23 documented as of this encounter Additional Source Comments The information contained in this document represents components of the legal health record. It is not the complete legal health record.[facility]
--- OUTSIDE RECORDS SUMMARY | 2025-01-29 08:59 | XMS_ITS | Encounter Summary ---
Author Organization [facility] Address [address] [place] [address] Phone Care Team Providers Care Interior Assemblies Developer Prover Name Role Phone Phil Menjivar MD Unavailable [phone] Percy Werner MD Unavailable Phil Menjivar MD Primary Care Provider + [phone] Phil Menjivar MD Unavailable [phone] Encounter Details Date Type Department Care Team (Late st Contact Info) Description 10/31/2022 Procedure Pass [facility] Admitting Dept Virtual Department [address] [place] [address] Social History Tobacco Use Types Packs/Day Years Used Date Smoking Tobacco: Former Cigarettes 0.5 5 1 999 - 2004 Smokeless Tobacco: Never Alcohol Use Standard Drinks/Week Comments Yes 7 (1 standard drink = 0.6 oz pur e alcohol) 0-2 drinks a day Education Answer Date Recorded Are you interested in more education? Not on anthony e 09/29/2022 Are you concerned about learning? Not on file 09/29/2022 No 09/29/2022 No 09/29/2022 Digital Access Answer Date Recorded No 10/25/2022 No 10/25/2022 Reliable internet access at home? Not on file 10/25/2022 Device with a working camera? Not on file Comments No Sex and Gender Information Value [...] Time PHQ-2 Depression Total Score: 0 10/12/19 4:05 PM EDT documented as of this encounter Care Teams Interior Assemblies Developer Prover Relationship Specialty Start Date End Date Phil Menjivar MD [address] [place] [address], [address] [place] [address] PCP - General 06/07/17 Phil Menjivar MD [address] [place] [address], [address] [address] Historical LMR Provider 03/22/17 Percy Werner MD [address] [place] [address] Historical LMR Provider 03/22/17 Phil Menjivar MD [address] [place] [address], [address] [place] [address] Insurance Assigned Provider 09/08/23 documented as of this encounter Additional Source Comments The information contained in this document represents components of the legal health record. It is not the complete legal health record.[facility]
--- OUTSIDE RECORDS SUMMARY | 2025-01-29 08:59 | XMS_ITS | Encounter Summary ---
Author Organization [facility] Address [address] [place] [address] [place] [address] Phone Care Team Providers Care Trench Shovel Operator Name Role Phone Louise Roldan ARLET Unavailable Phil Menjivar MD Unavailable [phone] Yuridia Dumont NP Unavailable [phone] Percy Werner MD Unavailable Alexandre Morton MD Unavailable [phone] Phil Menjivar MD Primary Care Provider + [phone] Phil Menjivar MD Unavailable [phone] Encounter Details Date Type Department Care Team (Late st Contact Info) Description 04/02/2020 Procedure Pass [facility], [facility] [address] [place] [address] Social History Tobacco Use Types Packs/Day Years [...] documented as of this encounter Care Teams Trench Shovel Operator Relationship Specialty Start Date End Date Phil Menjivar MD [address] [place] [address] PCP - General 06/07/17 Louise Roldan CNM [address] [place] [address] Historical LMR Provider 03/22/17 06/11/21 Phil Menjivar MD [address] [place] [address] Historical LMR Provider 03/22/17 Yuridia Dumont ENGINE INSPECTOR [address] [place] [address] Historical LMR Provider 03/22/17 2 Percy Werner MD [address] [place] [address] Historical LMR Provider 03/22/17 Alexandre Morton MD [address] [facility] Floor 1 [place] [address] [email or web address] Historical LMR Provider 03/22/17 06/11/21 Phil Menjivar MD [address] [facility] [place] [address] [email or web address] Insurance Assigned Provider 09/08/23 documented as of this encounter Additional Source Comments The information contained in this document represents components of the legal health record. It is not the complete legal health record.[facility]
--- OUTSIDE RECORDS SUMMARY | 2025-01-29 08:59 | XMS_ITS | Encounter Summary ---
Author Organization [facility] Address [address] [facility] [address] [place] [address] Phone Care Team Providers Care Travel Assistant Name Role Phone Louise Roldan ARLET Unavailable Phil Menjivar MD Unavailable [phone] Yuridia Dumont NP Unavailable [phone] Percy Werner MD Unavailable Alexandre Morton MD Unavailable [phone] Phil Menjivar MD Primary Care Provider [phone] Phil Menjivar MD Unavailable [phone] Encounter Details Date Type Department Care Team (Late st Contact Info) Description 04/24/2019 Ancillary Orders Virtual Department [address] [place] [address] Phil Menjivar MD [address] [facility] [place] [address] Breast screening Social History Tobacco Use Types Packs/Day Years [...] MAMMOGRAM SCREENING WITH TOMOSYNTHESIS WITH CAD (BILATERAL) (05/13/2019 3:48 PM EST) Anatomical Region Laterality Modality Breast Left, Breast Right, Breast Bilateral Bila teral Mammography 05/14/2019 8:18 AM EST Impressions 05/14/2019 8:21 AM EST No mammographic change indicative of malignancy. Annual screening is recommended. BI-RADS CATEGORY: 2 - Benign finding. DENSITY: There are scattered fibroglandular densities. POS -[id number] Narrative 05/14/2019 8:21 AM EST Bilateral full-field digital screening mammography is obtained and read in conjunction with computer-aided detection. Tomosynthesis as well as 2-D C view imaging of both breasts in two planes also obtained. Comparison made to multiple prior, most recent May 10, 2018, and most remote November 25, 2009. No dominant mass, unexpected architectural distortion, worrisome asymmetry, or suspicious calcification is identified. No skin or nipple finding of concern is appreciated. Changes of reduction mammoplasty again noted. Procedure Note Sukhwinder Kelsey MD - 05/14/2019 Bilateral full-field digital screening mammography is obtained and read inconjunction with computer-aided detection. Tomosynthesis as well as 2-D Cview imaging of both breasts in two planes also obtained. Comparison madeto multiple prior, most recent May 10, 2018, and most remote November. No dominant mass, unexpected architectural distortion, worrisomeasymmetry, or suspicious calcification is identified. No skin or nipplefinding of concern is appreciated. Changes of reduction mammoplasty againnoted. IMPRESSION: No mammographic change indicative of malignancy. Annual screening isrecommended. BI-RADS CATEGORY: 2 - Benign finding. DENSITY: There are scattered fibroglandular densities. POS -[id number] Phil Menjivar MD IMG MG EXAMS Final Resu lt documented in this encounter Visit Diagnoses Diagnosis Breast screening Breast screening, unspecified Breast screening Breast screening, unspecified documented in this encounter Additional Health Concerns [...] documented as of this encounter Care Teams Travel Assistant Relationship Specialty Start Date End Date Phil Menjivar MD [address] [place] [address], [address] [address] PCP - General 06/07/17 Louise Roldan CNM [address] [place] [address] Historical LMR Provider 03/22/17 06/11/21 Phil Menjivar MD [address] [place] [address], [address] [address] Historical LMR Provider 03/22/17 Yuridia Dumont NP [address] [place] [address] Historical LMR Provider 03/22/17 2 Percy Werner MD [address] [place] [address] [email or web address] Historical LMR Provider 03/22/17 Alexandre Morton MD [address] [place] [address] Floor 1 [place] [address] [email or web address] Historical LMR Provider 03/22/17 06/11/21 Phil Menjivar MD [address] [place] [address], [address] [place] [address] [email or web address] Insurance Assigned Provider 09/08/23 documented as of this encounter Additional Source Comments The information contained in this document represents components of the legal health record. It is not the complete legal health record.[facility]
--- OUTSIDE RECORDS SUMMARY | 2025-01-29 08:59 | XMS_ITS | Encounter Summary ---
Author Organization [facility] Address [address] [facility] [address] [place] [address] Phone Care Team Providers Care Communications Instructor Name Role Phone Phil Menjivar MD Unavailable [phone] Percy Werner MD Unavailable Phil Menjivar MD Primary Care Provider + [phone] Phil Menjivar MD Unavailable [phone] Encounter Details Date Type Department Care Team (Late st Contact Info) Description 03/14/2023 Procedure Pass [facility] Endoscopy Admitting Dept Virtual Department [address] [place] [address] Social History Tobacco Use Types Packs/Day Years Used Date Smoking Tobacco: Former Cigarettes 0.5 5 1 999 - 2004 Smokeless Tobacco: Never Alcohol Use Standard Drinks/Week Comments Yes 5 (1 standard drink = 0.6 oz pur e alcohol) Education Answer Date Recorded Are you interested in more education? Not on anthony e 09/29/2022 Are you concerned about learning? Not on file 09/29/2022 No 09/29/2022 No 09/29/2022 Digital Access Answer Date Recorded No 10/25/2022 No 10/25/2022 Reliable internet access at home? Not on file 10/25/2022 Device with a working camera? Not on file Intimate Partner Violence Answer Date R ecorded Are you denied basic needs s uch as food, clothing, or medical care? No 03/14/2023 In the past 12 months have y ou been in a relationship with a person who hurts, threatens, or tries to control you? No 03/14/2023 Are you denied basic needs s uch as food, clothing, or medical care? No 03/14/2023 In the past 12 months have y ou been in a relationship with a person who hurts, threatens, or tries to control you? No 03/14/2023 Comments No Sex and Gender Information Value [...] documented as of this encounter Care Teams Communications Instructor Relationship Specialty Start Date End Date Phil Menjivar MD [address] [place] [address], [address] [place] [address] [email or web address] PCP - General 06/07/17 Phil Menjivar MD [address] [place] [address], [address] [address] [email or web address] Historical LMR Provider 03/22/17 Percy Werner MD [address] [place] [address], [address] [address] [email or web address] Historical LMR Provider 03/22/17 Phil Menjivar MD [address] [place] [address], [address] [address] [email or web address] Insurance Assigned Provider 09/08/23 documented as of this encounter Additional Source Comments The information contained in this document represents components of the legal health record. It is not the complete legal health record.[facility]
--- OUTSIDE RECORDS SUMMARY | 2025-01-29 08:59 | XMS_ITS | Clinical Summary ---
Author Organization [facility] Address [address] [address] Phone Care Team Providers Care Bottom Turning Lathe Tender Name Role Phone Phil Menjivar MD Unavailable [phone] Percy Werner MD Unavailable Phil Menjivar MD Primary Care Provider [phone] Phil Menjivar MD Unavailable Allergies Active Allergy Reactions Criticality Noted Date Comments Hydrocodone-Acetaminophen Itching 09/13/2016 Lamotrigine 09/13/2016 Other reaction(s): ineffective Lisdexamfetamine 09/13/2016 Other reaction(s): htn Penicillin V Potassium Rash Low 09/13/2016 Sulfamethoxazole-Trimethoprim Rash Low 2016 Medications esomeprazole (NEXIUM) 20 MG capsule Take 1 capsule (20 mg total) by mouth daily as needed. 90 capsule 3 2 Active calcium carb/D3/magnesium /zinc (MILE MAG ZINC PLUS D3 ORAL) Take by mouth. Activ e DRYSOL DAB-O-MATIC 20 % external solution 3 Active carboxymethylcell ulose (REFRESH LIQUIGEL) 1 % ophthalmic solution Place 1 drop into each eye 3 (three) times a day. Active Medication-Free Text Menopausal gummie Active cyclobenzaprine (FLEXERIL) 10 MG tablet Take 10 mg by mouth as needed. 4 Active spironolactone (ALDACTONE) 50 MG tablet Take 1 tablet (50 mg total) by mouth 2 (two) times a day. 180 tablet 3 5 Active valACYclovir (VALTREX) 500 MG tabletIndications :Liver function abnormality Take 1 tablet (500 mg total) by mouth daily. 90 tablet 3 5 Active buPROPion (WELLBUTRIN XL) 300 MG ER 24 hr tablet Take 1 tablet (300 mg total) by mouth every morning. 90 tablet 3 5 Active topiramate (TOPAMAX) 100 MG tablet Take 1 tablet (100 mg total) by mouth daily. 90 tablet 5 Active methylphenidate HCl 54 MG ER tabletIndications :Attention deficit disorder (ADD) without hyperactivity Take 1 tablet (54 mg total) by mouth every morning. 30 tablet 5 Active clonazePAM (KLONOPIN) 0.5 MG tabletIndications :Bipolar 2 disorder,Generali zed anxiety disorder Take 1 tablet (0.5 mg total) by mouth 3 (three) times a day. 90 tablet 5 Active Active Problems Problem Noted Date Diagnosed Date Liver function abnormality 10/18/2020 Assessment & Plan (05/16/2024 2:00 PM EST): Clinically stable on present medications. Will provide refills. She will need vacation override if she travels abroad and will give us ample time to get those prescriptions taken care of. I had ordered an ultrasound and she will call [facility] to try and get this done prior to her departure. Of note transaminases normalized but alk phos up some. Like to rule out a gallbladder issue. She agrees with plan. Sicca syndrome 08/04/2020 Localized adiposity 05/26/2019 Generalized anxiety disorder 09/25/2017 Assessment & Plan (05/16/2024 2:00 PM EST): Bipolar 2 disorder 09/25/2017 Assessment & Plan (05/16/2024 2:00 PM EST): Migraine with aura and witho ut status migrainosus, not intractable 09/25/2017 ADD (attention deficit disorder) 09/25/2017 Assessment & Plan (05/16/2024 2:00 PM EST): Menopausal symptoms 09/25/2017 Assessment & Plan (10/07/2020 1:45 PM EDT): We discussed management options for hot flashes including E+P HRT, gabapentin, and SSRI. Discussed different forms of HRT (estrogen: oral, patch; progesterone: oral, patch, IUD) and pros/cons to each approach. Reviewed WHI findings including increased risk of PA/heart disease, breast cancer and VTE/stroke on HRT with overall decrease in hot flashes, colorectal cancer, and fractures. Reviewed approach to therapy including lowest dose for shortest course of time. Advised that risks are greater in women >60 yo or with >5 years of use. Reviewed dosing instructions and side effects including vaginal bleeding and breast tenderness. We also discussed vaginal estradiol treatment to help with dryness and dyspareunia. Reviewed differences of local vs systemic HRT. Given recent elevated liver enzymes, I declined to prescribe systemic HRT at this time. Miguel does not want to do her repeat LFTs today and is not ready to decrease her EtOH intake at this time due to ongoing stressors. Advised that local estradiol treatment is reasonable and we can begin with this. Advised that I am available at any time for additional follow up/discussion pending repeat lab testing with improvement in liver function. Gastroesophageal reflux disease Resolved Problems Problem Noted Date Diagnosed Date Resolved Date Acne 09/25/2017 05/26/2020 Immunizations Immunization Administration Dates Next Due COVID-19 (Pre-03/26) Pfizer Vaccine, mRNA, PF 09/04/2020 INFLUENZA, SPLIT VIRUS, TRIVALENT PF 02/11/2016 INFLUENZA, SPLIT VIRUS, TRIV ALENT W/ PRESERVATIVE IM 05/12/2014 Influenza Quadrivalent Preservative Free IM 02/03,02/03/2021,02/23/2020 Influenza Quadrivalent w/ Preservative IM 2014 Influenza Recombinant Nickolas valent Preservative Free IM 05/20/2019 Influenza Recombinant Trival ent 18+ Preservative Free IM 03/15/2024 Tdap 05/20/2019 Zoster recombinant 07/11/2022,02/27/2022 Family History Medical History Relation Comments Diabetes mellitus Father Hypertension Father Stroke Father Breast cancer Maternal Aunt Cancer Maternal Aunt Breast cancer Mother Cancer Mother Breast cancer Paternal Aunt Alcohol abuse Paternal Uncle Depression Paternal Uncle CV disease Sibling also has vaginal sarcoma Other Sister Relation Status Comments Father Alive Maternal Aunt Mother Alive Paternal Aunt Paternal Uncle Sibling Sister Social History Tobacco Use Types Packs/Day Years Used Date Smoking Tobacco: Former Cigarettes 0.5 5 1 999 - 2004 Smokeless Tobacco: Never Tobacco Cessation:Counseling Given: Not Answered Alcohol Use Standard Drinks/Week Comments Yes 3 (1 standard drink = 0.6 oz pur [...] on file Sexual Orientation Not on file Last Filed Vital Signs Vital Sign Reading Time Taken Comments Blood Pressure 100/68 11/30/2023 4:31 PM EDT Pulse 89 11/30/2023 4:31 PM EDT Temperature 36.3 C (97.3 F) 11/30/2023 4:31 PM EDT Respiratory Rate 16 03/14/2023 1:47 PM EDT Oxygen Saturation 98% 11/30/2023 4:31 PM EDT Inhaled Oxygen Concentration - - Weight 57.6 kg (127 lb) 11/30/2023 4:31 PM EDT p t stated Height 157.5 cm (5' 2.01 ) 09/07/2023 4:50 PM ED T Body Mass Index 23.22 09/07/2023 4:50 PM EDT Plan of Treatment Health Maintenance Due Date Last Done Comments COLOGUARD 2014 FIT TEST 2014 FOBT 2014 SIGMOIDOSCOPY 2014 VIRTUAL COLONOSCOPY 2014 PNEUMOCOCCAL VACCINES (50+ years) (1 of 1 - PCV) 10/09/2019 LIPID PANEL 05/20/2024 05/20/2019, 05/04, 05/12/2014, Additional history exists DEPRESSION SCREENING 11/29/2024 11/30/2023 INFLUENZA VACCINE (#1) 2025 , 02/27/2022, 02/03/2021, Additional history exists POTASSIUM LEVEL 05/08/2025 05/08/2024, 02/02, 08/04/2020, Additional history exists PAP SMEAR 10/06/2025 10/06/2020, 02/03, 02/26/2015 MAMMOGRAM 02/25/2026 02/26/2024, 11/03, 04/12/2020, Additional history exists Adult Td,Tdap Booster 05/20/2029 05/20/2019 COLONOSCOPY 03/14/2033 03/14/2023 COLORECTAL CANCER SCREENING 03/14/2033 HIV ONE-TIME SCREENING (18-65 YEARS) Completed 09/06/2018 HEPATITIS C SCREENING Completed 02/13/2022, 022 ZOSTER VACCINES Completed 07/11/2022, 02/27/2022 SMOKING STATUS SCREENING (Once After 26 Yrs) Completed 02/26/2024 COVID-19 VACCINE Completed 03/15/2024, , 05/16/2021, Additional history exists HEPATITIS A VACCINES Aged Out No long er eligible based on patient's age to complete this topic HIB VACCINES Aged Out No longer eligi ble based on patient's age to complete this topic MENINGOCOCCAL VACCINES (ACWY) Aged Out No longer eligible based on patient's age to complete this topic MENINGOCOCCAL VACCINES (B) Aged Out N o longer eligible based on patient's age to complete this topic Medical Devices Not on file Procedures Procedure Name Priority Date/Time Associated Diagnosis Comments COMPREHENSIVE METABOLIC PANEL Routine 05/08/2024 3:48 PM EST Liver function abnormality BI MAMMOGRAM SCREENING WITH TOMOSYNTHESIS WITH CAD (BILATERAL) Routine 02/26/2024 2:57 PM EDT Encounter for screening mammogram for malignant neoplasm of breast ENDOSCOPY, COLON 03/14/2023 1:05 PM EDT HEPATITIS C ANTIBODY, QUALITATIVE Routine 02/13/2022 3:50 PM EDT Need for hepatitis C screening test PAP TEST Routine 10/06/2020 12:00 AM EDT LIPID PANEL Routine 05/20/2019 2:55 PM EST Pre-op exam from Last 3 Months or Most Recently Relevant to Health Maintenance Results * (ABNORMAL) Comprehensive metabolic panel (05/08/2024 3:48 PM EST) SODIUM 136 133 - 146 mmol/L [facility] POTASSIUM 3.3 3.3 - 5.1 mmol/L [facility] CHLORIDE 98 96 - 108 mmol/L [facility] CO2 23 21 - 35 mmol/L [facility] BUN 20(H) 6 - 19 mg/dL [facility] CREATININE 0.90 0.5 - 1.5 mg/dL [facility] GLUCOSE 85 70 - 99 mg/dL [facility] ALBUMIN 4.8 3.9 - 4.8 g/dL [facility] TOTAL PROTEIN 8.0 6.5 - 8.0 g/dL [facility] CALCIUM 10.0 8.4 - 10.3 mg/dL [facility] ALKALINE PHOSPHATASE 131(H) 39 - 117 U/L [facility] TOTAL BILIRUBIN 0.4 0.0 - 1.2 mg/dL [facility] AST 29 0 - 37 U/L [facility] ALT 22 0 - 40 U/L [facility] GLOBULIN 3.2 1 - 4.8 g/dL [facility] EGFR 76 >59 mL/min/1.7 3m2 [facility] Comment:Estimated glomerular filtration rate calculated using the CKD-EPI refit equation. ANION GAP 18 10 - 20 mmol/L [facility] Blood 05/08/2024 3:48 PM EST 05/08/2024 3:53 PM EST us Phil Menjivar MD LAB BLOOD ORDERABLES Final Result Performing Organization Address City/State/[facility] Co de Phone Number [address] [address] * BI MAMMOGRAM SCREENING WITH TOMOSYNTHESIS WITH CAD (BILATERAL) (02/26/2024 2:57 PM EDT) Anatomical Region Laterality Modality Breast Left, Breast Right, Breast Bilateral Bila teral Mammography 02/26/2024 3:31 PM EDT Impressions 02/26/2024 3:32 PM EDT No mammographic evidence of malignancy in either breast. Annual screening mammography is recommended. BI-RADS 2 BENIGN The patient will be notified of the results and recommendations. Narrative 02/26/2024 3:32 PM EDT BI MAMMOGRAM SCREENING WITH TOMOSYNTHESIS WITH CAD (BILATERAL) Additional patient information: Screening. COMPARISON: Comparison is made with relevant prior imaging. Breast composition: There are scattered areas of fibroglandular density. FINDINGS: Previous reduction mammoplasty. There has been no change in the mammographic findings since previous examination. No abnormal masses, suspicious calcifications, or other significant findings are identified mammographically in either breast. Procedure Note Bina Watts MD - 02/26/2024 BI MAMMOGRAM SCREENING WITH TOMOSYNTHESIS WITH CAD (BILATERAL) Additional patient information: Screening. COMPARISON: Comparison is made with relevant prior imaging. Breast composition: There are scattered areas of fibroglandular density. FINDINGS: Previous reduction mammoplasty. There has been no change in themammographic findings since previous examination. No abnormal masses, suspicious calcifications, or other significantfindings are identified mammographically in either breast. IMPRESSION: No mammographic evidence of malignancy in either breast. Annual screening mammography is recommended. BI-RADS 2 BENIGN The patient will be notified of the results and recommendations. us Phil Menjivar MD IMG MG EXAMS Final Resu lt * ENDOSCOPY, COLON (03/14/2023 1:05 PM EDT) Narrative Transcriptions Magi Garcia MD - 03/14/2023 1:05 PM EDT [facility] Patient Name: Miguel Ramires Attending MD:: MAGI GARCIA MD, Procedure Date: 03/14/2023 1:05 PM Date of : 1970 Age: 52 Admit Type: Outpatient Gender: Female Room: [place] [address] Referring MD: PHIL MENJIVAR MD Exam Type: Colonoscopy Indications: Colon cancer screening in patient at [facility]: Family history of 1st-degree relative with colon polyps, This is the patient's first colonoscopy Medications: Monitored Anesthesia Care Procedure: Informed consent was obtained from the patientafter discussion of the indications, limitations, alternatives, benefits, and risks of the procedure. Risks specifically discussed include but are not limited to medication reactions, missed lesions, bleeding, perforation, or the need for emergent surgery. Throughout the procedure, the patient's blood pressure, pulse, end-tidal CO2, and oxygensaturations were monitored continuously. The Colonoscope was introduced through the anus and advanced to the terminal ileum, with identificationof the appendiceal orifice and IC valve. Thecolonoscopy was performed without difficulty. The patient tolerated the procedure well. The quality of thebowel preparation was good. The ileocecal valve,appendiceal orifice, and rectum were photographed. Complications: No immediate complications. Estimated blood loss:None. Findings: The terminal ileum appeared normal. Examination of the right colon was repeated in retroflexion and again in NBI. Retroflexion wasalso performed in the rectum. Three sessile polyps were found in the ascending colon. The polyps were 3 to 4 mm in size. Thesepolyps were removed with a cold snare. Resection and retrieval were complete. The exam was otherwise without abnormality. Impression: - The examined portion of the ileum was normal. - Three 3 to 4 mm polyps in the ascending colon, removed with a cold snare. Resected andretrieved. - The examination was otherwise normal. Recommendation: - Patient has a contact number available for emergencies. The signs and symptoms of potential delayed complications were discussed with thepatient. Return to normal activities tomorrow. Written discharge instructions were provided to thepatient. - Await pathology results. - Repeat colonoscopy for surveillance. Magi Garcia MAGI GARCIA MD 03/14/2023 2:20:39 PM This report has been signed electronically. Number of Addenda: 0 Note Initiated On: 03/14/2023 1:05 PM Procedure Code(s): --- Professional --- 30886, Colonoscopy, flexible; with removal of tumor(s), polyp(s), or other lesion(s) by snare technique --- Technical --- 82775, Colonoscopy, flexible; with removal of tumor(s), polyp(s), or other lesion(s) by snare technique CPT copyright 2021 [employer]. All rights reserved. The codes documented in this report are preliminary and upon lisw reviewmay be revised to meet current compliance requirements. Procedure Date: 03/14/2023 1:05:[address] [place] [id number] Phil Menjivar MD GI PROCEDURE ORDERABLES Fi nal Result * Hepatitis C antibody, qualitative (02/13/2022 3:50 PM EDT) HCV NON-REACTIV E NON-REACTI VE [facility] Blood 02/13/2022 3:50 PM EDT 02/13/2022 3:57 PM EDT Phil Menjivar MD LAB BLOOD ORDERABLES Final Result [address] [address] * Pap Smear (10/06/2020 12:00 AM EDT) 10/06/2020 10/07/2020 8:4 1 AM EDT Narrative SEE NARRATIVE - 10/13/2020 3:24 PM EDT [address] [address] Data Warehousing Manager: Risa Oakes MD SPECIAL DELIVERY MESSENGER Cytology Report FINAL DIAGNOSIS A. PAP SMEAR (SUREPATH) CE: SPECIMEN ADEQUACY: Satisfactory for evaluation; transformation zone present. INTERPRETATION: NEGATIVE FOR INTRAEPITHELIAL LESION OR MALIGNANCY. Reactive changes. Electronically Signed Out By: MD Octavio Hess CT(ASCP) By his/her signature above, the pathologist listed as making the Final Diagnosis certifies that he/she has personally reviewed this case and confirmed or corrected the diagnosis. The Pap test is a screening test primarily for squamous cancers and precursors and has associated false-negative and false-positive results. New technologies such as liquid-based preparations may decrease but will not eliminate all false-negative results. Regular sampling and follow-up of unexplained clinical signs and symptoms are recommended to minimize false negative results. PROCEDURES/ADDENDA HPV Testing (Requested) Ordered Date: 10/07/2020 A. PAP SMEAR (SUREPATH) CE: Human Papilloma Virus Test Negative for high-risk human papillomavirus types 16, 18, 45 and the Other high risk probe set (Includes 31, 33, 35, 39, 51, 52, 56, 58, 59, 66, 68) by [employer] HR-HPV analysis. Clinical correlation is advised. This HPV test was performed at [facility], [address] [place] [address]. This test has been FDA approved for [employer] cervical cytology specimens. The accuracy and precision of this test for all other specimen sources has been verified in the Cytopathology Laboratory of the [facility] and has not been cleared or approved by the U.S. Food and Drug Administration. Clinical correlation is advised. CLINICAL HISTORY Date of Last Menstrual Period: Not Provided Menstrual History: Post Menopausal Other Clinical Conditions: Screening Pap SPECIMEN SOURCE A: PAP SMEAR (SUREPATH) CE Patient Name: MIGUEL RAMIRES : 1970 (Age: 49) Sex: F Institution: [facility] Location: [facility] Date of Collection: 10/06/2020 Date of Reported: 10/13/2020 15:24 Results to: Debra Abebe MD Debra Abebe MD CYTOLOGY ORDERABLES Final Res ult SEE NARRATIVE * (ABNORMAL) Lipid panel (05/20/2019 2:55 PM EST) HDL 123 mg/dL [facility] Comment: Interpretation <40 mg/dL: Low HDL cholesterol (major risk factor for CHD) Greater than or equal to 60 mg/dL: High HDL cholesterol ( negative risk factor for CHD) HDL - cholesterol is affected by a number of factors, e.g. smoking, excerise, hormones, sex and age. CHOLESTEROL 194 0 - 240 mg/dL [facility] TRIGLYCERIDES 84 30 - 160 mg/dL [facility] LDL 54 50 - 129 mg/dL [facility] Comment: LDL levels in terms of risk for coronary heart disease: <100 mg/dL: Optimal 100-129 mg/dL: Near or above optimal 130-159 mg/dL: Borderline high 160-189 mg/dL: High >190 mg/dL: Very High CARDIAC RISK RATIO 1.6(L) 3.3 - 4.4 [facility] Blood 05/20/2019 2:55 PM EST 05/20/2019 2:59 PM EST us Phil Menjivar MD LAB BLOOD ORDERABLES Final Result [address] [address] from Last 3 Months or Most Recently Relevant to Health Maintenance [place] [address] PPO EPO [facility] PPO EPO [facility] PPO EPO [facility] P[place] [address] [place] [address] [address] [place] [address] PPO EPO [facility] PPO EPO Advance Directives For more information, please contact: [phone] (9AM - 5PM [facility], Sunday-Sunday) Documents on File Type Date Recorded Patient Museum Informatics Specialist Expl anation Healthcare Proxy 06/11/2019 4:27 PM * Full Code (Presumed) (Latest Code Status on File) Date Activated Date Inactivated Comments 06/10/2019 12:16 PM 06/10/2019 11:23 PM Care Teams Bottom Turning Lathe Tender Relationship Specialty Start Date End Date Phil Menjivar MD [address] [place] [address], [address] [place] [id number] [email or web address] PCP - General 06/07/17 Phil Menjivar MD [address] [place] [address], [address] [place] [id number] Historical LMR Provider 03/22/17 Percy Werner MD [address] [place] [phone] [email or web address] Historical LMR Provider 03/22/17 Phil Menjivar MD [address] [place] [address], [address] [place] [address] [email or web address] Insurance Assigned Provider 09/08/23 Additional Source Comments The information contained in this document represents components of the legal health record. It is not the complete legal health record.[facility]
--- OUTSIDE RECORDS SUMMARY | 2025-01-29 08:59 | XMS_ITS | Encounter Summary ---
Author Organization [facility] Address [address] [facility] [address] [place] [address] Phone Care Team Providers Care Yarrow Gatherer Name Role Phone Phil Menjivar MD Unavailable [phone] Percy Werner MD Unavailable Phil Menjivar MD Primary Care Provider + [phone] Phil Menjivar MD Unavailable [phone] Encounter Details Date Type Department Care Team (Late st Contact Info) Description 11/23/2021 Procedure Pass [facility] [address] [place] [address] Social History Tobacco Use Types Packs/Day Years [...] documented as of this encounter Care Teams Yarrow Gatherer Relationship Specialty Start Date End Date Phil Menjivar MD [address] [place] [address], [address] [place] [address] PCP - General 06/07/17 Phil Menjivar MD [address] [place] [address], [address] [place] [address] Historical LMR Provider 03/22/17 Percy Werner MD [address] [place] [address], [address] [address] Historical LMR Provider 03/22/17 Phil Menjivar MD [address] [place] [address], [address] [place] [phone] Insurance Assigned Provider 09/08/23 documented as of this encounter Additional Source Comments The information contained in this document represents components of the legal health record. It is not the complete legal health record.[facility]
--- OUTSIDE RECORDS SUMMARY | 2025-01-29 08:59 | XMS_ITS | Encounter Summary ---
Author Organization [facility] Address [address] [place] [address] Phone Care Team Providers Care Jingle Writer Name Role Phone Phil Menjivar MD Unavailable [phone] Percy Werner MD Unavailable Phil Menjivar MD Primary Care Provider + [phone] Phil Menjivar MD Unavailable [phone] Encounter Details Date Type Department Care Team (Late st Contact Info) Description 11/30/2023 Procedure Pass [facility], [facility] [address] [place] [address] Social History Tobacco Use Types Packs/Day Years Used Date Smoking Tobacco: Former Cigarettes 0.5 5 1 999 - 2004 Smokeless Tobacco: Never Alcohol Use Standard Drinks/Week Comments Yes 3 [...] filedocumented in this encounter Additional Health Concerns Assessment Noted Time PHQ-2 Depression Total Score: 0 11/30/19 24 4:58 PM EDT documented as of this encounter Care Teams Jingle Writer Relationship Specialty Start Date End Date Phil Menjivar MD [address] [place] [address], [address] [address] PCP - General 06/07/17 Phil Menjivar MD [address] [place] [address], [address] [address] Historical LMR Provider 03/22/17 Percy Werner MD [address] [place] [address] Historical LMR Provider 03/22/17 Phil Menjivar MD [address] [place] [address], [address] [address] Insurance Assigned Provider 09/08/23 documented as of this encounter Additional Source Comments The information contained in this document represents components of the legal health record. It is not the complete legal health record.[facility]
== END 2025-01-29 08:24 | disposition home or self-care (01) ==
LOC: CF 08:23
PROVIDERS: Visit Provider Internal Medicine
DX: M53.3 Sacrococcygeal disorders, not elsewhere classified (principal)
CPT/HCPCS: 27096; J2003; J2795; J3301

== ENCOUNTER 2025-01-29 12:32 | Outpatient (AMB) | payer BC, SELFPAY ==
--- NOTE | 2025-01-29 12:38 | MHC.OFFVIS ---
Vital Signs 01/29/25 12:39 01/29/25 14:12 BP 121/83 134/81 Blood Pressure Location Lt brachial Lt brachial Position Sitting Sitting Respiration 16 16 Pulse 97 94 Pulse Source Pulse Oximeter Pulse Oximeter Pulse Oximetry (%) 100 100 Oxygen Delivery Method Room Air Room Air Intake Visit Reasons: Grady theraputic SIJ inj/ ativan Hook And Eye Machine Operator Required: No Allergies Penicillins Allergy (Unknown, Verified 12/15/24 13:39) Rash hydrocodone (From Vicodin) Allergy (Verified 12/15/24 13:39) Rash sulfamethoxazole (From Bactrim) Allergy (Verified 12/15/24 13:39) face itches trimethoprim (From Bactrim) Allergy (Verified 12/15/24 13:39) face itches HPI HPI Grady theraputic SIJ inj/ ativan: Details: Patient presents for scheduled procedure. Denies any recent cough, cold, infection, fever or other significant changes in medical history since last office visit. [facility] Medical History Myofascial pain Lumbar paraspinal muscle spasm Piriformis muscle pain Sacroiliac joint dysfunction of both sides Social History Alcohol intake: current Alcohol intake frequency: holidays/special occasions only Patient Tobacco Use Status: Never used Tobacco Current occupational status: employed Current occupation: realtor Physical Exam Vital Signs: Last Vital Signs Pulse 94 01/29/25 14:12 Resp 16 01/29/25 14:12 BP 134/81 01/29/25 14:12 Pulse Ox 100 01/29/25 14:12 Oxygen Delivery Method Room Air 01/29/25 14:12 Office Procedures AMB Joint Injection/Aspiration Joint Injection/Aspiration Details: Sacroiliac Joint Injection, Bilateral The procedure, its benefits, and its risks were explained and written informed consent was obtained from the patient. Immediately prior to starting the procedure, a time-out safety check was conducted. The patient's identification, procedure name, procedure site, and procedure laterality were confirmed with the patient. ? Patient was placed prone on the fluoroscopy table and the lumbosacral area was prepped using ChloraPrep and draped with sterile draped in standard fashion. The C-arm was rotated in a contralateral oblique fashion until the medial border of the iliac crest no longer foreshadowed the posterior sacroiliac joint line. The skin and subcutaneous tissue was anesthetized using 1 mL of 0.75% plain lidocaine with 1.5-inch 25-gauge needle in the middle region of the joint line.? A 3.5-inch 22-gauge spinal needle with small bend on the tip was slowly advanced towards the joint line, coaxial to the x-ray beam. Once bony content was obtained, the needle was easily slid into the intra-articular space.? Intra-articular needle position was confirmed using lateral fluoroscopy.? A total volume of 2.5mL of solution containing 40 mg trimcinilone and rest 0.5% of ropivacaine was injected intra-articularly. The stylet was reinserted and needle was removed. The same procedure was repeated on the other side. The patient tolerated the procedure well. Patient denied any lower extremity weakness or numbness. Patient was observed for 30 min and was discharged after fulfilling the standard discharge criteria. Coding 32246 - Sacroiliac (bilateral) Procedure code (CPT) selection complete Assessment & Plan Assessment & Plan (1) Sacroiliac joint dysfunction of both sides: Code(s): M53.3 - Sacrococcygeal disorders, not elsewhere classified Category: Medical Plan Patient is status post bilateral SIJ injections. Patient tolerated procedure well and was discharged home in stable condition with discharge instructions. All questions were answered. We will follow-up via telephone or in clinic to assess response to therapy. A follow-up appointment was made during today's visit. Orders: Orders FL guidance in treatment room 01/29/25 M53.3 - Sacrococcygeal disorders, not elsewhere classified Coding Level of Care Code Procedure Only Diagnoses Sacroiliac joint dysfunction of both sides M53.3 CPT Codes Coding - Joint 9: 98299 - Sacroiliac ([id number])
[2025-01-29 12:39] VITALS: BP 121/83; PULSE 97; RESP 16; O2SAT 100
[2025-01-29 14:12] VITALS: BP 134/81; PULSE 94; RESP 16; O2SAT 100
== END 2025-01-29 14:10 | disposition home or self-care (01) ==
LOC: HO.PMCPRC 12:32
PROVIDERS: PCP Family Medicine; Visit Provider Internal Medicine
DX: M53.3 Sacrococcygeal disorders, not elsewhere classified (principal)
CPT/HCPCS: 27096

== ENCOUNTER 2025-02-25 09:22 | Outpatient (AMB) | payer BC, SELFPAY ==
--- NOTE | 2025-02-25 09:25 | MHC.OFFVIS ---
Vital Signs 02/25/25 09:28 Height 5 ft 1.5 in BMI Reason not done Patient refused/unable BP 122/82 Blood Pressure Location Lt brachial Position Sitting Respiration 16 Pulse 87 Pulse Source Pulse Oximeter Pulse Oximetry (%) 97 Oxygen Delivery Method Room Air Intake Visit Reasons: s/p keith theraputic SIJ inj Web Content Developer Required: No Allergies Penicillins Allergy (Unknown, Verified 02/25/25 09:30) Rash hydrocodone (From Vicodin) Allergy (Verified 02/25/25 09:30) Rash sulfamethoxazole (From Bactrim) Allergy (Verified 02/25/25 09:30) face itches trimethoprim (From Bactrim) Allergy (Verified 02/25/25 09:30) face itches Medication List - Last Reconciled 02/25/25 by Lesa Cobos LPN bupropion HCl XL 300 mg PO DAILY clonazepam mg PO methylphenidate HCl ER 54 mg PO QAM mupirocin 2% 1 appl topical BID-TID spironolactone 50 mg PO BID topiramate 100 mg PO DAILY valacyclovir 500 mg PO DAILY HPI HPI s/p keith theraputic SIJ inj: Details: History of Present Illness The patient is a 54-year-old female presenting with sacroiliac joint dysfunction. She had sacroiliac joint injections in November, which provided 75% relief for two months, but currently reports no relief from the injections. The patient experiences significant discomfort, with pain primarily in the lower back, exacerbated by bending forward and somewhat relieved by bending backward. The patient has a history of degenerative changes in the lumbar spine, which may contribute to her symptoms. She reports that activities such as showering and doing dishes exacerbate her pain, and she has been unable to work for three months due to the severity of her symptoms. The patient has attempted physical therapy in the past and continues to perform stretching exercises at home, although she has not been able to do so since her last procedure. Pain Description - Onset: Pain primarily in the lower back, exacerbated by bending forward. - Quality: Aching pain with episodes of severe discomfort. - Location: Lower back, with primary focus on the sacroiliac region. - Radiation: Pain does not radiate significantly beyond the lower back. - Exacerbating factors: Activities such as showering and doing dishes. - Relieving factors: Bending backward provides some relief. - Interference: Pain interferes with daily activities and work, leading to inability to work for three months. Physical Exam Results Pain Management - Affect: The patient reports feeling exhausted and depressed due to chronic pain. - Analgesia: Sacroiliac joint injections provided temporary relief; current pain management includes THC gummies. - Adverse Effects: No specific adverse effects from current pain management reported. - Activities of Daily Living: Pain significantly impacts daily activities and work capability. - Aberrant Drug Related Behaviors: No aberrant behaviors reported. COUNTS INCLUDE 234 BEDS AT THE [facility] Medical History Myofascial pain Lumbar paraspinal muscle spasm Piriformis muscle pain Sacroiliac joint dysfunction of both sides Social History Alcohol intake: current Alcohol intake frequency: holidays/special occasions only Patient Tobacco Use Status: Never used Tobacco Current occupational status: employed Current occupation: realtor Physical Exam Vital Signs: Last Vital Signs Pulse 87 02/25/25 09:28 Resp 16 02/25/25 09:28 BP 122/82 02/25/25 09:28 Pulse Ox 97 02/25/25 09:28 Oxygen Delivery Method Room Air 02/25/25 09:28 Assessment & Plan Assessment & Plan (1) Lumbar radiculopathy: Code(s): M54.16 - Radiculopathy, lumbar region Category: Medical Plan Plan Patient was informed and verbally consented to the use of an ambient scribe for clinic note documentation during this visit. 1. Low Back Radicular Pain - Plan: Order MRI of the lumbar spine to assess potential discogenic or vertebrogenic components and radicular symptoms. - Follow-up: Schedule an appointment after MRI results are available to discuss further interventions. 2. Degenerative Changes In The Lumbar Spine - Plan: MRI to evaluate the extent of degenerative changes and their contribution to symptoms. - Follow-up: Review MRI findings to determine additional treatment options. Discussion Notes I discussed with the patient the potential degenerative changes in the lumbar spine and the role of sacroiliac joint dysfunction in her symptoms. We agreed to proceed with an MRI to further investigate these issues and to plan subsequent interventions based on the findings. The patient was informed about the MRI procedure, including the need to remain still during the scan, and was advised to schedule a follow-up appointment after the MRI is completed. Patient Instructions - Schedule an MRI of the lumbar spine as soon as possible. - Contact the office to schedule a follow-up appointment after receiving the MRI date. - Continue home stretching exercises as tolerated. Orders: Orders MR lumbar spine wo con 02/25/25 M54.16 - Radiculopathy, lumbar region Coding Level of Care Code Est Pt Level 4 (58553) Diagnoses Lumbar radiculopathy M54.16
[2025-02-25 09:28] VITALS: BP 122/82; PULSE 87; RESP 16; O2SAT 97
--- OUTSIDE RECORDS SUMMARY | 2025-02-25 11:02 | XMS_ITS | Encounter Summary ---
Author Organization [facility] Address [address] [place] [address] Phone Care Team Providers Care Acrobatic Rigger Name Role Phone Louise Roldan ARLET Unavailable Phil Menjivar MD Unavailable [phone] Yuridia Dumont NP Unavailable [phone] Percy Werner MD Unavailable Alexandre Morton MD Unavailable [phone] Phil Menjivar MD Primary Care Provider + [phone] Phil Menjivar MD Unavailable [phone] Encounter Details Date Type Department Care Team (Late st Contact Info) Description 04/24/2019 Ancillary Orders [facility] Medical [facility] Medicine [address] [place] [address] Phil Menjivar MD [address] [facility] [place], [place] [id number] [email or web address] Social History Tobacco Use Types Packs/Day Years [...] documented as of this encounter Care Teams Acrobatic Rigger Relationship Specialty Start Date End Date Phil Menjivar MD [address] [place] [address] PCP - General 06/07/17 Louise Roldan CNM [address] [place] [address] Historical LMR Provider 03/22/17 06/11/21 Phil Menjivar MD [address] [place] [address] Historical LMR Provider 03/22/17 Yuridia Dumont NP [address] [place] [address] Historical LMR Provider 03/22/17 2 Percy Werner MD [address] [place] [address] [email or web address] Historical LMR Provider 03/22/17 Alexandre Morton MD [address] [place] [address] Floor 1 [place] [address] [email or web address] Historical LMR Provider 03/22/17 06/11/21 Phil Menjivar MD [address] [place] [address], [address] [place] [address] [email or web address] Insurance Assigned Provider 09/08/23 documented as of this encounter Additional Source Comments The information contained in this document represents components of the legal health record. It is not the complete legal health record.[facility]
--- OUTSIDE RECORDS SUMMARY | 2025-02-25 11:02 | XMS_ITS | Encounter Summary ---
Author Organization [facility] Address [address] [facility] [address] [facility] [address] [place] [address] Phone Care Team Providers Care Digital X Ray Service Engineer Name Role Phone Louise Roldan ARLET Unavailable Phil Menjivar MD Unavailable [phone] Yuridia Dumont NP Unavailable [phone] Percy Werner MD Unavailable Alexandre Morton MD Unavailable [phone] Phil Menjivar MD Primary Care Provider [phone] Phil Menjivar MD Unavailable [phone] Encounter Details Date Type Department Care Team (Late st Contact Info) Description 04/24/2019 Ancillary Orders Virtual Department [address] [place] [address] Phil Menjivar MD [address] [facility] [place] [address] Breast screening Social History Tobacco Use Types [...] DENSITY: There are scattered fibroglandular densities. POS -[id number] Narrative 05/14/2019 8:21 AM EST Bilateral full-field [...] DENSITY: There are scattered fibroglandular densities. POS -[id number] us hPil Menjivar MD IMG MG EXAMS Final Resu [...] documented as of this encounter Care Teams Digital X Ray Service Engineer Relationship Specialty Start Date End Date Phil Menjivar MD [address] [place] [address], [address] [address] PCP - General 06/07/17 Louise Roldan CNM [address] [place] [address] Historical LMR Provider 03/22/17 06/11/21 Phil Menjivar MD [address] [place] [address], [address] [address] Historical LMR Provider 03/22/17 Yuridia Dumont NP [address] [place] [address] Historical LMR Provider 03/22/17 2 Percy Werner MD [address] [place] [address] [email or web address] Historical LMR Provider 03/22/17 Alexandre Morton MD [address] [place] [address] Floor 1 [place] [address] [email or web address] Historical LMR Provider 03/22/17 06/11/21 Phil Menjivar MD [address] [place] [address], [address] [place] [address] [email or web address] Insurance Assigned Provider 09/08/23 documented as of this encounter Additional Source Comments The information contained in this document represents components of the legal health record. It is not the complete legal health record.[facility]
--- OUTSIDE RECORDS SUMMARY | 2025-02-25 11:02 | XMS_ITS | Encounter Summary ---
Author Organization [facility] Address [address] [place] [address] Phone Care Team Providers Care Machine Tender Name Role Phone Phil Menjivar MD Unavailable [phone] Percy Werner MD Unavailable Phil Menjivar MD Primary Care Provider [phone] Phil Menjivar MD Unavailable [phone] Encounter Details Date Type Department Care Team (Latest Contact Info) Description 11/23/2021 Ancillary Orders [facility] Medical [facility] Medicine [address] [place] [address] Phil Menjivar MD [address] [facility] [place] [address] [email or web address] Abnormal mammogram of both breasts [...] documented as of this encounter Care Teams Machine Tender Relationship Specialty Start Date End Date Phil Menjivar MD [address] [place] [address], [address] [place] [address] PCP - General 06/07/17 Phil Menjivar MD [address] [place] [address], [address] [place] [address] Historical LMR Provider 03/22/17 Percy Werner MD [address] [place] [address], [address] [address] Historical LMR Provider 03/22/17 Phil Menjivar MD [address] [place] [address], [address] [place] [address] Insurance Assigned Provider 09/08/23 documented as of this encounter Additional Source Comments The information contained in this document represents components of the legal health record. It is not the complete legal health record.[facility]
--- OUTSIDE RECORDS SUMMARY | 2025-02-25 11:02 | XMS_ITS | Encounter Summary ---
Author Organization [facility] Address [address] [place] [address] [place] [address] Phone Care Team Providers Care Electronic Train Control Technician Name Role Phone Louise Roldan ARLET Unavailable Phil Menjivar MD Unavailable [phone] Yuridia Dumont NP Unavailable [phone] Percy Werner MD Unavailable Alexandre Morton MD Unavailable [phone] Phil Menjivar MD Primary Care Provider + [phone] Phil Menjivar MD Unavailable [phone] Encounter Details Date Type Department Care Team (Late st Contact Info) Description 06/10/2019 Procedure Pass OR Admitting Dept - Virtual Department [address] [place] [address] Social History Tobacco Use Types Packs/Day Years [...] documented as of this encounter Care Teams Electronic Train Control Technician Relationship Specialty Start Date End Date Phil Menjivar MD [address] [place] [address] PCP - General 06/07/17 Louise Roldan CNM [address] [place] [address] Historical LMR Provider 03/22/17 06/11/21 Phil Menjivar MD [address] [place] [address] Historical LMR Provider 03/22/17 Yuridia Dumont SEED TECHNICIAN [address] [place] [address] Historical LMR Provider 03/22/17 2 Percy Werner MD [address] [place] [address] Historical LMR Provider 03/22/17 Alexandre Morton MD [address] [facility] Floor 1 [place] [address] [email or web address] Historical LMR Provider 03/22/17 06/11/21 Phil Menjivar MD [address] [facility] [place] [address] [email or web address] Insurance Assigned Provider 09/08/23 documented as of this encounter Additional Source Comments The information contained in this document represents components of the legal health record. It is not the complete legal health record.[facility]
--- OUTSIDE RECORDS SUMMARY | 2025-02-25 11:02 | XMS_ITS | Encounter Summary ---
Author Organization [facility] Address [address] [facility] [address] [address] [place] [address] Phone Care Team Providers Care Laboratory Director Name Role Phone Phil Menjivar MD Unavailable [phone] Percy Werner MD Unavailable Phil Menjivar MD Primary Care Provider + [phone] Phil Menjivar MD Unavailable [phone] Encounter Details Date Type Department Care Team (Late st Contact Info) Description 11/23/2021 Procedure Pass [facility], [facility] [address] [place] [address] Social History Tobacco Use Types Packs/Day Years [...] documented as of this encounter Care Teams Laboratory Director Relationship Specialty Start Date End Date Phil Menjivar MD [address] [place] [address], [address] [place] [address] PCP - General 06/07/17 Phil Menjivar MD [address] [place] [address], [address] [place] [address] Historical LMR Provider 03/22/17 Percy Werner MD [address] [place] [address], [address] [address] Historical LMR Provider 03/22/17 Phil Menjivar MD [address] [place] [address], [address] [place] [address] Insurance Assigned Provider 09/08/23 documented as of this encounter Additional Source Comments The information contained in this document represents components of the legal health record. It is not the complete legal health record.[facility]
--- OUTSIDE RECORDS SUMMARY | 2025-02-25 11:02 | XMS_ITS | Encounter Summary ---
Author Organization [facility] Address [address] [place] [address] [place] [address] Phone Care Team Providers Care Client Support Representative Name Role Phone Louise Roldan ARLET Unavailable Phil Menjivar MD Unavailable [phone] Yuridia Dumont NP Unavailable [phone] Percy Werner MD Unavailable Alexandre Morton MD Unavailable [phone] Phil Menjivar MD Primary Care Provider + [phone] Phil Menjivar MD Unavailable [phone] Encounter Details Date Type Department Care Team (Late st Contact Info) Description 04/02/2020 Procedure Pass [facility], [facility] [address] [place] [address] Social History Tobacco Use Types Packs/Day Years [...] documented as of this encounter Care Teams Client Support Representative Relationship Specialty Start Date End Date Phil Menjivar MD [address] [place] [address] PCP - General 06/07/17 Louise Roldan CNM [address] [place] [address] Historical LMR Provider 03/22/17 06/11/21 Phil Menjivar MD [address] [place] [address] Historical LMR Provider 03/22/17 Yuridia Dumont BLENDER LABORER [address] [place] [address] Historical LMR Provider 03/22/17 2 Percy Werner MD [address] [place] [address] Historical LMR Provider 03/22/17 Alexandre Morton MD [address] [facility] Floor 1 [place] [address] [email or web address] Historical LMR Provider 03/22/17 06/11/21 Phil Menjivar MD [address] [facility] [place] [address] [email or web address] Insurance Assigned Provider 09/08/23 documented as of this encounter Additional Source Comments The information contained in this document represents components of the legal health record. It is not the complete legal health record.[facility]
--- OUTSIDE RECORDS SUMMARY | 2025-02-25 11:02 | XMS_ITS | Encounter Summary ---
Author Organization [facility] Address [address] [place] [address] Phone Care Team Providers Care Telegraphic Typewriter Mechanic Name Role Phone Phil Menjivar MD Unavailable [phone] Percy Werner MD Unavailable Phil Menjivar MD Primary Care Provider [phone] Phil Menjivar MD Unavailable [phone] Reason for Visit * Reason Comments Medication Refill Encounter Details Date Type Department Care Team (Late st Contact Info) Description 03/28/2024 Refill [facility] Medicine [address] [place] [address] [id number] Phil Menjivar MD [address] [facility], [address] [place] [address] [email or web address] Medication Refill Social History Tobacco Use Types Packs/Day Years [...] on file documented as of this encounter Progress Notes * Prashanth Romero - 03/28/2024 11:40 AM EDT Rx Care Gap Status - Instructions for Clinical Staff (prescriber discretion applies): > At least one medication below does not meet full criteria. Please see medication-specific renewal instructions below. > No future appt: Please schedule if appropriate. > Labs due: Remind patient to get lab tests done soon. > Orders needed: Please click BPA/SmartSet to enter. CBC - Needs order * LFTs BMP Visit Info Last visit: 11/30/2023 Phil Menjivar MD - Family Medicine [facility] > Requested f/u: Return in about 4 months (around 03/31/2024) for Virtual visit. Upcoming visit: None ACTIONS TAKEN BY Prashanth Romero - Refill protocol not met - Entered lab orders and reminded patient to do lab tests soon. - Needs lab reminder Antiepileptic With Lab Monitoring Rx Protocol - topiramate Criteria not met; renew for up to 3 months. Visit in the past 12 months: Yes Clinical criteria: - BMP within past year: None (has active order) - LFTs within past year: None (has active order) - CBC within past year: No - Above labs are normal: No Lab Results Component Value Date SODIUM 138 02/13/2022 POTASSIUM 4.3 02/13/2022 CHLORIDE 103 02/13/2022 CO2 23 02/13/2022 BUN 19 02/13/2022 CREATININE 0.90 02/13/2022 EGFR 77 02/13/2022 Lab Results Component Value Date WBC 7.29 03/12/2023 HCT 42.9 03/12/2023 HGB 15.0 03/12/2023 PLT 279 03/12/2023 Lab Results Component Value Date AST 40 (H) 02/13/2022 ALT 36 02/13/2022 ALKALINE PHOSPHATASE 86 02/13/2022 TOTAL BILIRUBIN 0.4 02/13/2022 Lab Results Component Value Date TOPIRAMATE 3.9 03/12/2023 Health Maintenance Labs Due / Due Soon Topic Date Due POTASSIUM LEVEL 02/13/2023 LIPID PANEL 05/20/2024 documented in this encounter Plan of Treatment Not on file documented as of this encounter Visit Diagnoses Not on filedocumented in this encounter Additional Health Concerns Assessment Noted Time PHQ-2 Depression Total Score: 0 11/30/19 24 4:58 PM EDT documented as of this encounter Care Teams Telegraphic Typewriter Mechanic Relationship Specialty Start Date End Date Phil Menjivar MD [address] [place] [address], [address] [place] [address] [email or web address] PCP - General 06/07/17 Phil Menjivar MD [address] [place] [address], [address] [place] [address] [email or web address] Historical LMR Provider 03/22/17 Percy Werner MD [address] [place] [address], [address] [address] [email or web address] Historical LMR Provider 03/22/17 Phil Menjivar MD [address] [place] [address], [address] [place] [address] [email or web address] Insurance Assigned Provider 09/08/23 documented as of this encounter Additional Source Comments The information contained in this document represents components of the legal health record. It is not the complete legal health record.[facility]
--- OUTSIDE RECORDS SUMMARY | 2025-02-25 11:02 | XMS_ITS | Encounter Summary ---
Author Organization [facility] Address [address] [place] [address] [place] [address] Phone Care Team Providers Care Nc Machinist Name Role Phone Louise Roldan ARLET Unavailable Phil Menjivar MD Unavailable [phone] Yuridia Dumont NP Unavailable [phone] Percy Werner MD Unavailable Alexandre Morton MD Unavailable [phone] Phil Menjivar MD Primary Care Provider + [phone] Phil Menjivar MD Unavailable [phone] Encounter Details Date Type Department Care Team (Late st Contact Info) Description 04/02/2020 Procedure Pass [facility], [facility] [address] [place] [address] Social History Tobacco Use Types Packs/Day Years [...] documented as of this encounter Care Teams Nc Machinist Relationship Specialty Start Date End Date Phil Menjivar MD [address] [place] [address] PCP - General 06/07/17 Louise Roldan CNM [address] [place] [address] Historical LMR Provider 03/22/17 06/11/21 Phil Menjivar MD [address] [place] [address] Historical LMR Provider 03/22/17 Yuridia Dumont DRAW FRAME RUNNER [address] [place] [address] Historical LMR Provider 03/22/17 2 Percy Werner MD [address] [place] [address] Historical LMR Provider 03/22/17 Alexandre Morton MD [address] [facility] Floor 1 [place] [address] [email or web address] Historical LMR Provider 03/22/17 06/11/21 Phil Menjivar MD [address] [facility], [address] [place] [address] [email or web address] Insurance Assigned Provider 09/08/23 documented as of this encounter Additional Source Comments The information contained in this document represents components of the legal health record. It is not the complete legal health record.[facility]
--- OUTSIDE RECORDS SUMMARY | 2025-02-25 11:03 | XMS_ITS | Encounter Summary ---
Author Organization [facility] Address [address] [facility] [address] [place] [address] Phone Care Team Providers Care Algebraist Name Role Phone Phil Menjivar MD Unavailable Percy Werner MD Unavailable Phil Menjivar MD Primary Care Provider + [phone] Phil Menjivar MD Unavailable [phone] Encounter Details Date Type Department Care Team (Late st Contact Info) Description 10/31/2022 Procedure Pass [facility] Admitting Dept Virtual Department 30 [place] [address] Social History Tobacco Use Types Packs/Day Years [...] documented as of this encounter Care Teams Algebraist Relationship Specialty Start Date End Date Phil Menjivar MD [address] [place] [address], [address] [place] [address] PCP - General 06/07/17 Phil Menjivar MD [address] [place] [address], [address] [address] Historical LMR Provider 03/22/17 Percy Werner MD [address] [place] [address] Historical LMR Provider 03/22/17 Phil Menjivar MD [address] [place] [address], [address] [place] [address] Insurance Assigned Provider 09/08/23 documented as of this encounter Additional Source Comments The information contained in this document represents components of the legal health record. It is not the complete legal health record.[facility]
--- OUTSIDE RECORDS SUMMARY | 2025-02-25 11:03 | XMS_ITS | Encounter Summary ---
Author Organization [facility] Address [address] [facility] [address] [place] [address] Phone Care Team Providers Care Marketing Programs Manager Name Role Phone Phil Menjivar MD Unavailable [phone] Percy Werner MD Unavailable Phil Menjivar MD Primary Care Provider + [phone] Phil Menjivar MD Unavailable [phone] Encounter Details Date Type Department Care Team (Late st Contact Info) Description 11/30/2023 Procedure Pass [facility], [facility] [address] [place] [address] Social History Tobacco Use Types Packs/Day Years [...] documented as of this encounter Care Teams Marketing Programs Manager Relationship Specialty Start Date End Date Phil Menjivar MD [address] [place] [address], [address] [address] PCP - General 06/07/17 Phil Menjivar MD [address] [place] [address], [address] [address] Historical LMR Provider 03/22/17 Percy Werner MD [address] [place] [address] Historical LMR Provider 03/22/17 Phil Menjivar MD [address] [place] [address], [address] [address] Insurance Assigned Provider 09/08/23 documented as of this encounter Additional Source Comments The information contained in this document represents components of the legal health record. It is not the complete legal health record.[facility]
--- OUTSIDE RECORDS SUMMARY | 2025-02-25 11:03 | XMS_ITS | Clinical Summary ---
Author Organization [facility] Address [address] [address] Phone Care Team Providers Care Glass Finisher Name Role Phone Phil Menjivar MD Unavailable [phone] Percy Werner MD Unavailable Phil Menjivar MD Primary Care Provider [phone] Phil Menjivar MD Unavailable Allergies Active Allergy [...] Reviewed [facility] findings including increased risk of IL/heart disease, breast cancer and VTE/stroke on HRT [...] Free IM 05/20/2019 Influenza Recombinant Trival ent Preservative Free IM 03/15/2024 Tdap 05/20/2019 Zoster [...] EST) SODIUM 136 133 - 146 mmol/L [facility] POTASSIUM 3.3 3.3 - 5.1 mmol/L [facility] CHLORIDE 98 96 - 108 mmol/L [facility] CO2 23 21 - 35 mmol/L [facility] BUN 20(H) 6 - 19 mg/dL [facility] CREATININE 0.90 0.5 - 1.5 mg/dL [facility] GLUCOSE 85 70 - 99 mg/dL [facility] ALBUMIN 4.8 3.9 - 4.8 g/dL [facility] TOTAL PROTEIN 8.0 6.5 - 8.0 g/dL [facility] CALCIUM 10.0 8.4 - 10.3 mg/dL [facility] ALKALINE PHOSPHATASE 131(H) 39 - 117 U/L [facility] TOTAL BILIRUBIN 0.4 0.0 - 1.2 mg/dL [facility] AST 29 0 - 37 U/L [facility] ALT 22 0 - 40 U/L [facility] GLOBULIN 3.2 1 - 4.8 g/dL [facility] EGFR 76 >59 mL/min/1.7 3m2 [facility] Comment:Estimated glomerular filtration rate calculated using the CKD-EPI refit equation. ANION GAP 18 10 - 20 mmol/L [facility] Blood 05/08/2024 3:48 PM EST 05/08/2024 3:53 PM EST us Phil Menjivar MD LAB BLOOD ORDERABLES Final Result Performing Organization Address City/State/[facility] Co de Phone Number [address] [address] * BI MAMMOGRAM SCREENING WITH TOMOSYNTHESIS WITH [...] Garcia MD - 03/14/2023 1:05 PM EDT [facility] Patient Name: Miguel Ramires Attending MD:: MAGI GARCIA MD, Procedure Date: 03/14/2023 1:05 PM Date of : 1970 Age: 52 Admit Type: Outpatient Gender: Female Room: [place] [address] Referring MD: PHIL MENJIVAR MD Exam Type: Colonoscopy Indications: [facility]: Family history of 1st-degree relative with colon [...] 1:05 PM Procedure Code(s): --- Professional --- 33280, Colonoscopy, flexible; with removal of tumor(s), polyp(s), or other lesion(s) by snare technique --- Technical --- 15744, Colonoscopy, flexible; with removal of tumor(s), polyp(s), or other lesion(s) by snare technique CPT copyright 2021 [employer]. All rights reserved. The codes documented in this report are preliminary and upon fish and wildlife technician reviewmay be revised to meet current compliance requirements. Procedure Date: 03/14/2023 1:05:[address] [place] [address] Phil Menjivar MD GI PROCEDURE ORDERABLES Fi nal Result * Hepatitis C antibody, qualitative (02/13/2022 3:50 PM EDT) HCV NON-REACTIV E NON-REACTI VE [facility] Blood 02/13/2022 3:50 PM EDT 02/13/2022 3:57 PM EDT Phil Menjivar MD LAB BLOOD ORDERABLES Final Result [address] [address] * Pap Smear (10/06/2020 12:00 AM EDT) 10/06/2020 10/07/2020 8:4 1 AM EDT Narrative SEE NARRATIVE - 10/13/2020 3:24 PM EDT [address] [address] Furniture Removalist: Risa Oakes MD AUTO BRAKE MECHANIC Cytology Report FINAL DIAGNOSIS A. PAP SMEAR [...] 52, 56, 58, 59, 66, 68) by [facility] HR-HPV analysis. Clinical correlation is advised. This HPV test was performed at [facility], [address] [place] [address]. This test has been FDA approved for [facility] cervical cytology specimens. The accuracy and precision of this test for all other specimen sources has been verified in the Cytopathology Laboratory of the [facility] and has not been cleared or approved by the U.S. Food and Drug Administration. Clinical correlation is advised. CLINICAL HISTORY Date of Last Menstrual Period: Not Provided Menstrual History: Post Menopausal Other Clinical Conditions: Screening Pap SPECIMEN SOURCE A: PAP SMEAR (SUREPATH) CE Patient Name: MIGUEL RAMIRES : 1970 (Age: 49) Sex: F Institution: [facility] Location: [facility] Date of Collection: 10/06/2020 Date of Reported: 10/13/2020 15:24 Results to: Debra Abebe MD Debra Abebe MD CYTOLOGY ORDERABLES Final Res ult SEE NARRATIVE * (ABNORMAL) Lipid panel (05/20/2019 2:55 PM EST) HDL 123 mg/dL [facility] Comment: Interpretation <40 mg/dL: Low HDL cholesterol (major risk factor for CHD) Greater than or equal to 60 mg/dL: High HDL cholesterol ( negative risk factor for CHD) HDL - cholesterol is affected by a number of factors, e.g. smoking, excerise, hormones, sex and age. CHOLESTEROL 194 0 - 240 mg/dL [facility] TRIGLYCERIDES 84 30 - 160 mg/dL [facility] LDL 54 50 - 129 mg/dL [facility] Comment: LDL levels in terms of risk for coronary heart disease: <100 mg/dL: Optimal 100-129 mg/dL: Near or above optimal 130-159 mg/dL: Borderline high 160-189 mg/dL: High >190 mg/dL: Very High CARDIAC RISK RATIO 1.6(L) 3.3 - 4.4 C [facility] Blood 05/20/2019 2:55 PM EST 05/20/2019 2:59 PM EST us Phil Menjivar MD LAB BLOOD ORDERABLES Final Result [address] [address] from Last 3 Months or Most Recently Relevant to Health Maintenance [place] [place] [address] PPO EPO [facility] PPO EPO [facility] PPO EPO [facility] PPO EPO [facility] PPO EPO [facility] PPO EPO [facility] PPO EPO [facility] PPO EPO Advance Directives For more information, please contact: [phone] (9AM - 5PM [facility], Sunday-Sunday) Documents on File Type Date Recorded Patient Account Auditor Expl anation Healthcare Proxy 06/11/2019 4:27 PM * Full Code (Presumed) (Latest Code Status on File) Date Activated Date Inactivated Comments 06/10/2019 12:16 PM 06/10/2019 11:23 PM Care Teams Glass Finisher Relationship Specialty Start Date End Date Phil Menjivar MD [address] [place] [address], [address] [place] [address] PCP - General 06/07/17 Phil Menjivar MD [address] [place] [address], [address] [place] [address] Historical LMR Provider 03/22/17 Percy Werner MD [address] [place] [address] Historical LMR Provider 03/22/17 Phil Menjivar MD [address] [place] [address], [address] [place] [address] Insurance Assigned Provider 09/08/23 Additional Source Comments The information contained in this document represents components of the legal health record. It is not the complete legal health record.[facility]
--- OUTSIDE RECORDS SUMMARY | 2025-02-25 11:04 | XMS_ITS | Encounter Summary ---
Author Organization [facility] Address [address] [facility] [address] [place] [address] Phone Care Team Providers Care Combination Machine Tool Setter Name Role Phone Phil Menjivar MD Unavailable [phone] Percy Werner MD Unavailable Phil Menjivar MD Primary Care Provider + [phone] Phil Menjivar MD Unavailable [phone] Encounter Details Date Type Department Care Team (Late st Contact Info) Description 03/14/2023 Procedure Pass [facility]oscopy Admitting Dept Virtual Department 30 [place] [address] Social History Tobacco Use Types Packs/Day Years [...] documented as of this encounter Care Teams Combination Machine Tool Setter Relationship Specialty Start Date End Date Phil Menjivar MD [address] [place] [address], [address] [place] [address] [email or web address] PCP - General 06/07/17 Phil Menjivar MD [address] [place] [address], [address] [address] [email or web address] Historical LMR Provider 03/22/17 Percy Werner MD [address] [place] [address], [address] [address] [email or web address] Historical LMR Provider 03/22/17 Phil Menjivar MD [address] [place] [address], [address] [address] [email or web address] Insurance Assigned Provider 09/08/23 documented as of this encounter Additional Source Comments The information contained in this document represents components of the legal health record. It is not the complete legal health record.[facility]
== END 2025-02-25 09:57 | disposition home or self-care (01) ==
LOC: HO.PMC 09:22
PROVIDERS: PCP Family Medicine; Visit Provider Internal Medicine
DX: M54.16 Radiculopathy, lumbar region (principal)
CPT/HCPCS: 99214

== ENCOUNTER 2025-04-09 17:58 | Outpatient (REF) | payer BC, SELFPAY ==
--- NOTE | ~2025-04-09 | MR_ITS ---
EXAMINATION: MR LUMBAR SPINE WITHOUT CONTRAST CLINICAL INFORMATION: M 54.16. Radiculopathy, lumbar region. COMPARISON: None available. TECHNIQUE: MRI of the lumbar spine was obtained using routine sequences without contrast. FINDINGS: Last rib-bearing vertebra labeled T12. Bone marrow STIR signal in the posterior elements/facet joints L5-S1 and to a lesser extent L4-5. 1 mm anterolisthesis L4-5. Multilevel disc desiccation and small marginal osteophyte formation throughout the axial skeleton. Bone marrow inhomogeneity. Conus medullaris ends at pedicle of L1 with normal signal. T11-12: No disc herniation. No neuroforamina stenosis. T12-L1: No disc herniation. No neuroforamina stenosis. L1-2: Broad-based disc bulging. No central spinal canal or neuroforamina stenosis. L2-3: Broad-based disc bulging. Facet joint ligamentum flavum hypertrophy. Reduced AP diameter of the thecal sac. No neuroforamina stenosis. L3-4: Broad-based disc bulging. Facet joint and ligamentum flavum hypertrophy. Reduced AP diameter of the thecal sac. No neuroforamina stenosis. L4-5: Broad-based disc bulging. Facet joint and ligamentum flavum hypertrophy producing the AP diameter of thecal sac and neuroforamina likely encroaching the neural elements. L5-S1: Broad-based disc bulging. Facet joint and ligamentum flavum hypertrophy. Prominent epidural fat. Reduced AP diameter thecal sac and neuroforamina. There is a 7 mm cystic lesion in the posterior aspect of the left facet joint. No prevertebral compartment hematoma, mass or fluid collections. MR/MR lumbar spine wo con IMPRESSION: Multilevel lumbar spondylosis from L2-3 to L5-S1 resulting in grade 1 anterolisthesis L4-5 and central spinal canal stenosis at L4-5 and L5-S1 without compression upon neural elements. Electronically signed by: Cordell Reece MD 04/09/2025 08:31 PM [facility]
--- OUTSIDE RECORDS SUMMARY | 2025-04-09 18:52 | XMS_ITS | Encounter Summary ---
Author Organization [facility] Address [address] [place] [address] Phone Care Team Providers Care Inspector Floor Sub Assembly Name Role Phone Louise Roldan ARLET Unavailable Phil Menjivar MD Unavailable [phone] Yuridia Dumont NP Unavailable [phone] Percy Werner MD Unavailable Alexandre Morton MD Unavailable [phone] Phil Menjivar MD Primary Care Provider + [phone] Phil Menjivar MD Unavailable [phone] Encounter Details Date Type Department Care Team (Late Contact Info) Description 04/02/2020 Procedure Pass [facility], [address] [address] Social History Tobacco Use Types Packs/Day Years [...] as of this encounter Plan of Treatment Upcoming Encounters Date Type Department Care Team (Late Contact Info) Description 03/22/2025 Procedure Pass [facility] [address] [place] [address] 11/25/2025 9:45 AM EDT Appointment [facility] [address] [place] [address] Phil Menjivar MD [address] [place] [address], [address] [place] [address] documented as of this encounter Visit Diagnoses Not on filedocumented in this encounter Additional Health Concerns Infection Onset Date Last Indicated Resolved Time CoV-Exposed Comment:Recent close contact documented in the COVID-19 PCR/PRO order 07/08/2020 07/09/2020 07/23/2020 1:[address] CoV-Presumed 07/25/2021 07/25/2021 08/15/2021 1:21 AM EDT COVID-19 06/18/2023 06/18/2023 07/09/2023 1:21 AM EST Assessment Noted Time PHQ-2 Depression Total Score: 0 04/02/20 20 1:48 PM EDT documented as of this encounter Care Teams Inspector Floor Sub Assembly Relationship Specialty Start Date End Date Phil Menjivar MD [address] [place] [address], [address] [place] [address] PCP - General 06/07/17 Louise Roldan CNM [address] [place] [address], [address] [place] [address] Historical LMR Provider 03/22/17 06/11/21 Phil Menjivar MD [address] [place] [address], [address] [place] [address] Historical LMR Provider 03/22/17 Yuridia Dumont NP [address] [place] [address] Historical LMR Provider 03/22/17 2 Percy Werner MD [address] [place] [address], [address] [place] [address] [email or web address] Historical LMR Provider 03/22/17 Alexandre Morton MD [address] [facility] Floor 1 [place] [address] [email or web address] Historical LMR Provider 03/22/17 06/11/21 Phil Menjivar MD [address] [place] [address], [address] [place] [address] [email or web address] Insurance Assigned Provider 09/08/23 documented as of this encounter Additional Source Comments The information contained in this document represents components of the legal health record. It is not the complete legal health record.[facility]
--- OUTSIDE RECORDS SUMMARY | 2025-04-09 18:52 | XMS_ITS | Encounter Summary ---
Author Organization [facility] Address [address] [facility] [address] [address] [place] [address] Phone Care Team Providers Care Ring Conductor Name Role Phone Louise Roldan ARLET Unavailable Phil Menjivar MD Unavailable [phone] Yuridia Dumont NP Unavailable [phone] Percy Werner MD Unavailable Alexandre Morton MD Unavailable [phone] Phil Menjivar MD Primary Care Provider [phone] Phil Menjivar MD Unavailable [phone] Encounter Details Date Type Department Care Team (Late st Contact Info) Description 04/24/2019 Ancillary Orders Virtual Department 30 [place] [address] Phil Menjivar MD [address] [facility], [address] [place] [address] Breast screening Social History Tobacco Use Types [...] Encounters Date Type Department Care Team (Late st Contact Info) Description 03/22/2025 Procedure Pass [address] [address] 11/25/2025 9:45 AM EDT Appointment [address] [address] Phil Menjivar MD [address] [place] [address], [address] [place] [address] [email or web address] documented as of this encounter Results * [...] DENSITY: There are scattered fibroglandular densities. POS -[id number] Narrative 05/14/2019 8:21 AM EST Bilateral full-field [...] DENSITY: There are scattered fibroglandular densities. POS -[id number] Phil Menjivar MD IMG MG EXAMS Final Resu lt documented in this encounter Visit Diagnoses Diagnosis Breast screening Breast screening, unspecified Breast screening Breast screening, unspecified Visit for screening mammogram documented in this encounter Additional Health Concerns Infection Onset Date Last Indicated Resolved Time CoV-Exposed Comment:Recent close contact documented in the COVID-19 PCR/PRO order 07/08/2020 07/09/2020 07/23/2020 1:[address] CoV-Presumed 07/25/2021 07/25/2021 08/15/2021 1:21 AM EDT COVID-19 06/18/2023 06/18/2023 07/09/2023 1:21 AM EST Assessment Noted Time PHQ-2 Depression Total Score: 0 09/26/19 18 11:07 AM EDT documented as of this encounter Care Teams Ring Conductor Relationship Specialty Start Date End Date Phil Menjivar MD [address] [place] [address], [address] [place] [address] PCP - General 06/07/17 Louise Roldan CNM [address] [place] [address], [address] [place] [address] Historical LMR Provider 03/22/17 06/11/21 Phil Menjivar MD [address] [place] [address], [address] [place] [address] [email or web address] Historical LMR Provider 03/22/17 Yuridia Dumont DAYCARE MANAGER [address] [place] [address] Historical LMR Provider 03/22/17 2 Percy Werner MD [address] [place] [address], [address] [address] [email or web address] Historical LMR Provider 03/22/17 Alexandre Morton MD [address] [facility] Floor 1 [place] [address] [email or web address] Historical LMR Provider 03/22/17 06/11/21 Phil Menjivar MD [address] [place] [address], [address] [place] [address] [email or web address] Insurance Assigned Provider 09/08/23 documented as of this encounter Additional Source Comments The information contained in this document represents components of the legal health record. It is not the complete legal health record.[facility]
--- OUTSIDE RECORDS SUMMARY | 2025-04-09 18:52 | XMS_ITS | Encounter Summary ---
Author Organization [facility] Address [address] [place] [address] Phone Care Team Providers Care Telephone Service Adviser Name Role Phone Louise Roldan ARLET Unavailable Phil Menjivar MD Unavailable [phone] Yuirdia Dumont NP Unavailable [phone] Percy Werner MD Unavailable Alexandre Morton MD Unavailable [phone] Phil Menjivar MD Primary Care Provider + [phone] Phil Menjivar MD Unavailable [phone] Encounter Details Date Type Department Care Team (Late Contact Info) Description 04/02/2020 Procedure Pass [facility], [facility] [address] [place] [address] Social History Tobacco Use Types Packs/Day Years [...] (Late Contact Info) Description 03/22/2025 Procedure Pass [facility] [address] [place] [address] 11/25/2025 9:45 AM EDT Appointment [facility] [address] [place] [address] Phil Menjivar MD [address] [place] [address], [address] [place] [address] documented as of this encounter Visit Diagnoses [...] documented as of this encounter Care Teams Telephone Service Adviser Relationship Specialty Start Date End Date Phil Menjivar MD [address] [place] [address], [address] [place] [address] PCP - General 06/07/17 Louise Roldan CNM [address] [place] [address], [address] [place] [address] Historical LMR Provider 03/22/17 06/11/21 Phil Menjivar MD [address] [place] [address], [address] [place] [address] Historical LMR Provider 03/22/17 Yuridia Dumont NP [address] [place] [address] Historical LMR Provider 03/22/17 2 Percy Werner MD [address] [place] [address], [address] [place] [address] [email or web address] Historical LMR Provider 03/22/17 Alexandre Morton MD 22 [facility] Floor 1 [place] [address] [email or web address] Historical LMR Provider 03/22/17 06/11/21 Phil Menjivar MD [address] [place] [address], [address] [place] [address] [email or web address] Insurance Assigned Provider 09/08/23 documented as of this encounter Additional Source Comments The information contained in this document represents components of the legal health record. It is not the complete legal health record.[facility]
--- OUTSIDE RECORDS SUMMARY | 2025-04-09 18:52 | XMS_ITS | Clinical Summary ---
Author Organization [facility] Address [address] [address] Phone Care Team Providers Care Office Asst Name Role Phone Phil Menjivar MD Unavailable [phone] Percy Werner MD Unavailable Phil Menjivar MD Primary Care Provider [phone] Phil Menjivar MD Unavailable [phone] Allergies Active Allergy Reactions Criticality Noted Date [...] Reviewed WHI findings including increased risk of SC/heart disease, breast cancer and VTE/stroke on HRT [...] 09/07/2023 4:50 PM EDT Plan of Treatment Upcoming Encounters Date Type Department Care Team (Late st Contact Info) Description 03/22/2025 Procedure Pass [address] [address] 11/25/2025 9:45 AM EDT Appointment [address] [address] Phil Menjivar MD 22 [facility], [address] [place] [address] Health Maintenance Due Date Last Done Comments SMOKING Hx and SMOKELESS TOBACCO SCREENING 1982 COLOGUARD 2014 FIT TEST 2014 FOBT 2014 SIGMOIDOSCOPY 2014 VIRTUAL COLONOSCOPY 2014 PNEUMOCOCCAL VACCINES (50+ years) (1 of 1 - PCV) 10/09/2019 LIPID PANEL 05/20/2024 05/20/2019, 05/04, 05/12/2014, Additional history exists DEPRESSION SCREENING 11/29/2024 11/30/2023 INFLUENZA VACCINE (#1) 2025 , 02/27/2022, 02/03/2021, Additional history exists COVID-19 VACCINE ( season) 2025 03/15/2024, 02/27/2022, 05/16/2021, Additional history exists POTASSIUM LEVEL 05/08/2025 05/08/2024, 02/02, 08/04/2020, Additional history exists PAP SMEAR 10/06/2025 10/06/2020, 02/03, 02/26/2015 MAMMOGRAM 02/25/2026 02/26/2024, 11/03, 04/12/2020, Additional history exists Adult Td,Tdap Booster 05/20/2029 05/20/2019 COLONOSCOPY 03/14/2033 03/14/2023 COLORECTAL CANCER SCREENING 03/14/2033 RSV VACCINE (1 - 1-dose 75+ series) 2044 HIV ONE-TIME SCREENING (18-65 YEARS) Completed 09/06/2018 HEPATITIS C SCREENING Completed 02/13/2022, 022 ZOSTER VACCINES Completed 07/11/2022, 02/27/2022 HEPATITIS A VACCINES Aged Out No long er eligible based on patient's age to complete this topic HIB VACCINES Aged Out No longer eligi ble based on patient's age to complete this topic IPV VACCINES Aged Out No longer eligi ble [...] Date/Time Associated Diagnosis Comments COMPREHENSIVE METABOLIC PANEL (CMP) Routine 05/08/2024 3:48 PM EST Liver function [...] EST) SODIUM 136 133 - 146 mmol/L [facility] POTASSIUM 3.3 3.3 - 5.1 mmol/L [facility] CHLORIDE 98 96 - 108 mmol/L [facility] CO2 23 21 - 35 mmol/L [facility] BUN 20(H) 6 - 19 mg/dL [facility] CREATININE 0.90 0.5 - 1.5 mg/dL [facility] GLUCOSE 85 70 - 99 mg/dL [facility] ALBUMIN 4.8 3.9 - 4.8 g/dL [facility] TOTAL PROTEIN 8.0 6.5 - 8.0 g/dL [facility] CALCIUM 10.0 8.4 - 10.3 mg/dL [facility] ALKALINE PHOSPHATASE 131(H) 39 - 117 U/L [facility] TOTAL BILIRUBIN 0.4 0.0 - 1.2 mg/dL [facility] AST 29 0 - 37 U/L [facility] ALT 22 0 - 40 U/L [facility] GLOBULIN 3.2 1 - 4.8 g/dL [facility] EGFR 76 >59 mL/min/1.7 3m2 [facility] Comment:Estimated glomerular filtration rate calculated using the CKD-EPI refit equation. ANION GAP 18 10 - 20 mmol/L [facility] Blood 05/08/2024 3:48 PM EST 05/08/2024 3:53 PM EST us Phil Menjivar MD LAB BLOOD BKR ORDERABLES F inal Result Performing Organization Address City/State/[facility] Co de Phone Number [address] [address] * BI MAMMOGRAM SCREENING WITH TOMOSYNTHESIS WITH [...] Garcia MD - 03/14/2023 1:05 PM EDT [facility] Patient Name: Miguel Ramires Attending MD:: MAGI GARCIA MD, Procedure Date: 03/14/2023 1:05 PM Date of : 1970 Age: 52 Admit Type: Outpatient Gender: Female Room: [facility] 05 Referring MD: PHIL MENJIVAR MD Exam Type: Colonoscopy Indications: Colon cancer screening in patient at [facility]: Family history of 1st-degree relative with colon [...] 1:05 PM Procedure Code(s): --- Professional --- 03322, Colonoscopy, flexible; with removal of tumor(s), polyp(s), or other lesion(s) by snare technique --- Technical --- 11297, Colonoscopy, flexible; with removal of tumor(s), polyp(s), or other lesion(s) by snare technique CPT copyright 2021 [employer]. All rights reserved. The codes documented in this report are preliminary and upon obstetric assistant reviewmay be revised to meet current compliance requirements. Procedure Date: 03/14/2023 1:05:[address] [place] [address] Phil Menjivar MD GI PROCEDURE ORDERABLES Fi nal Result * Hepatitis C antibody, qualitative (02/13/2022 3:50 PM EDT) HCV NON-REACTIV E NON-REACTI VE [facility] Blood 02/13/2022 3:50 PM EDT 02/13/2022 3:57 PM EDT Phil Menjivar MD LAB BLOOD BKR ORDERABLES F inal Result [address] [address] * Pap Smear (10/06/2020 12:00 AM EDT) 10/06/2020 10/07/2020 8:4 1 AM EDT Narrative SEE NARRATIVE - 10/13/2020 3:24 PM EDT [address] [address] Account Development Representative: Risa Oakes MD ENTERPRISE APPLICATION DEVELOPER Cytology Report FINAL DIAGNOSIS A. PAP SMEAR (SUREPATH) CE: SPECIMEN ADEQUACY: Satisfactory for evaluation; transformation zone present. INTERPRETATION: NEGATIVE FOR INTRAEPITHELIAL LESION OR MALIGNANCY. Reactive changes. Electronically Signed Out By: MD Octavio Hess CT([facility]) By his/her signature above, the pathologist listed [...] 52, 56, 58, 59, 66, 68) by Betyah Onclarity HR-HPV analysis. Clinical correlation is advised. This HPV test was performed at [facility], [address] [place] [address]. This test has been FDA approved for [facility]Path cervical cytology specimens. The accuracy and precision of this test for all other specimen sources has been verified in the Cytopathology Laboratory of the [facility] and has not been cleared or approved by the U.S. Food and Drug Administration. Clinical correlation is advised. Electronically Signed Out By: GAMAL Pompa([facility])JOAQUIN on 10/12/2020 10:57 CLINICAL HISTORY Date of Last Menstrual Period: Not Provided Menstrual History: Post Menopausal Other Clinical Conditions: Screening Pap SPECIMEN SOURCE A: PAP SMEAR (SUREPATH) CE Patient Name: MIGUEL RAMIRES : 1970 (Age: 49) Sex: F Institution: [facility] Location: [facility] Date of Collection: 10/06/2020 Date of Reported: 10/13/2020 15:24 Results to: Debra Abebe MD us Debra Abebe MD CYTOLOGY ORDERABLES Final Res ult Performing Organization Address City/[facility]/ZIP Co de Phone Number SEE NARRATIVE * (ABNORMAL) Lipid panel (05/20/2019 2:55 PM EST) HDL 123 mg/dL [facility] Comment: Interpretation <40 mg/dL: Low HDL cholesterol (major risk factor for CHD) Greater than or equal to 60 mg/dL: High HDL cholesterol ( negative risk factor for CHD) HDL - cholesterol is affected by a number of factors, e.g. smoking, excerise, hormones, sex and age. CHOLESTEROL 194 0 - 240 mg/dL [facility] TRIGLYCERIDES 84 30 - 160 mg/dL [facility] LDL 54 50 - 129 mg/dL [facility] Comment: LDL levels in terms of risk for coronary heart disease: <100 mg/dL: Optimal 100-129 mg/dL: Near or above optimal 130-159 mg/dL: Borderline high 160-189 mg/dL: High >190 mg/dL: Very High CARDIAC RISK RATIO 1.6(L) 3.3 - 4.4 [facility] Blood 05/20/2019 2:55 PM EST 05/20/2019 2:59 PM EST us Phil Menjivar MD LAB BLOOD BKR ORDERABLES F inal Result Performing Organization Address [facility] Co de Phone Number [facility] [address] [place] [address] from Last 3 Months or Most Recently Relevant to Health Maintenance Insurance [facility] PPO EPO [facility] PPO EPO [facility] [place]PO [place] [address] [place] [address] PPO EPO [facility] [place] [address] [place] [address] PPO EPO Advance Directives For more information, please contact: [phone] (9AM - 5PM [facility], Sunday-Sunday) Documents on File Type Date Recorded Patient Monitoring Tech Expl anation Healthcare Proxy 06/11/2019 4:27 PM * Full Code (Presumed) (Latest Code Status on File) Date Activated Date Inactivated Comments 06/10/2019 12:16 PM 06/10/2019 11:23 PM Care Teams Office Asst Relationship Specialty Start Date End Date Phil Menjivar MD [address] [place] [address], [address] [place] [address] PCP - General 06/07/17 Phil Menjivar MD [address] [place] [address], [address] [place] [address] [email or web address] Historical LMR Provider 03/22/17 Percy Werner MD [address] [place] [address], [address] [address] [email or web address] Historical LMR Provider 03/22/17 Phil Menjivar MD [address] [place] [address], [address] [place] [address] [email or web address] Insurance Assigned Provider 09/08/23 Additional Source Comments The information contained in this document represents components of the legal health record. It is not the complete legal health record.[facility]
--- OUTSIDE RECORDS SUMMARY | 2025-04-09 18:52 | XMS_ITS | Encounter Summary ---
Author Organization [facility] Address [address] [facility] [address] [place] [address] Phone Care Team Providers Care Milieu Therapist Name Role Phone Louise Roldan ARLET Unavailable Phil Menjivar MD Unavailable [phone] Yuridia Dumont NP Unavailable [phone] Percy Werner MD Unavailable Alexandre Morton MD Unavailable [phone] Phil Menjivar MD Primary Care Provider + [phone] Phil Menjivar MD Unavailable [phone] Encounter Details Date Type Department Care Team (Late st Contact Info) Description 04/24/2019 Ancillary Orders [facility] Medical [facility] Medicine [address] [place] [address] Phil Menjivar MD 22 [facility], [address] [place], [place] [id number] [email or web address] Social History Tobacco Use Types Packs/Day Years [...] st Contact Info) Description 03/22/2025 Procedure Pass [address] [address] 11/25/2025 9:45 AM EDT Appointment [address] [address] Phil Menjivar MD [address] [place] [address], [address] [place] [address] documented as of this encounter Visit Diagnoses [...] documented as of this encounter Care Teams Milieu Therapist Relationship Specialty Start Date End Date Phil Menjivar MD [address] [place] [address], [address] [place] [address] PCP - General 06/07/17 Louise Roldan CNM [address] [place] [address], [address] [place] [address] Historical LMR Provider 03/22/17 06/11/21 Phil Menjivar MD [address] [place] [address], [address] [place] [address] [email or web address] Historical LMR Provider 03/22/17 Yuridia Dumont NP [address] [place] [address] Historical LMR Provider 03/22/17 2 Percy Werner MD [address] [place] [address], [address] [place] [address] [email or web address] Historical LMR Provider 03/22/17 Alexandre Morton MD 22 [facility] Floor 1 [place] [address] [email or web address] Historical LMR Provider 03/22/17 06/11/21 Phil Menjivar MD 22 [facility], [address] [place] [address] [email or web address] Insurance Assigned Provider 09/08/23 documented as of this encounter Additional Source Comments The information contained in this document represents components of the legal health record. It is not the complete legal health record.[facility]
--- OUTSIDE RECORDS SUMMARY | 2025-04-09 18:52 | XMS_ITS | Encounter Summary ---
Author Organization [facility] Address [address] [place] [address] Phone Care Team Providers Care Helium Arc Welder Name Role Phone Louise Roldan ARLET Unavailable Phil Menjivar MD Unavailable [phone] Yuridia Dumont NP Unavailable [phone] Percy Werner MD Unavailable Alexandre Morton MD Unavailable [phone] Phil Menjivar MD Primary Care Provider + [phone] Phil Menjivar MD Unavailable [phone] Encounter Details Date Type Department Care Team ([facility] Contact Info) Description 06/10/2019 Procedure Pass OR Admitting Dept - Virtual Department [address] [place] [address] Social History Tobacco Use Types Packs/Day Years [...] (Late Contact Info) Description 03/22/2025 Procedure Pass [facility] [address] [place] [address] 11/25/2025 9:45 AM EDT Appointment [address] [address] Phil Menjivar MD [address] [place] [address], [address] [place] [address] documented as of this encounter Visit Diagnoses [...] documented as of this encounter Care Teams Helium Arc Welder Relationship Specialty Start Date End Date Phil Menjivar MD [address] [place] [address], [address] [place] [address] PCP - General 06/07/17 Louise Roldan CNM [address] [place] [address], [address] [place] [address] Historical LMR Provider 03/22/17 06/11/21 Phil Menjivar MD [address] [place] [address], [address] [place] [address] Historical LMR Provider 03/22/17 Yuridia Dumont NP [address] [place] [address] Historical LMR Provider 03/22/17 2 Percy Werner MD [address] [place] [address], [address] [place] [address] [email or web address] Historical LMR Provider 03/22/17 Alexandre Morton MD 22 [facility] Floor 1 [place] [address] [email or web address] Historical LMR Provider 03/22/17 06/11/21 Phil Menjivar MD [address] [place] [address], [address] [place] [address] [email or web address] Insurance Assigned Provider 09/08/23 documented as of this encounter Additional Source Comments The information contained in this document represents components of the legal health record. It is not the complete legal health record.[facility]
--- OUTSIDE RECORDS SUMMARY | 2025-04-09 18:52 | XMS_ITS | Encounter Summary ---
Author Organization [facility] Address [address] [facility] [address] [place] [address] Phone Care Team Providers Care Conveyor Operator Name Role Phone Phil Menjivar MD Unavailable [phone] Percy Werner MD Unavailable Phil Menjivar MD Primary Care Provider + [phone] Phil Menjivar MD Unavailable [phone] Encounter Details Date Type Department Care Team (Late st Contact Info) Description 10/31/2022 Procedure Pass [facility] Admitting Dept Virtual Department [address] [place] [address] Social History Tobacco Use Types Packs/Day Years [...] st Contact Info) Description 03/22/2025 Procedure Pass [address] [address] 11/25/2025 9:45 AM EDT Appointment [address] [address] Phil Menjivar MD [address] [place] [address] [email or web address] documented as of this encounter Visit Diagnoses Not on filedocumented in this encounter Additional Health Concerns Infection Onset Date Last Indicated Resolved Time COVID-19 06/18/2023 06/18/2023 07/09/2023 1:21 AM EST Assessment Noted Time PHQ-2 Depression Total Score: 0 10/12/19 22 4:05 PM EDT documented as of this encounter Care Teams Conveyor Operator Relationship Specialty Start Date End Date Phil Menjivar MD [address] [place] [address], [address] [address] PCP - General 06/07/17 Phil Menjivar MD [address] [place] [address], [address] [address] Historical LMR Provider 03/22/17 Percy Werner MD [address] [place] [address], [address] [address] Historical LMR Provider 03/22/17 Phil Menjivar MD [address] [place] [address] [email or web address] Insurance Assigned Provider 09/08/23 documented as of this encounter Additional Source Comments The information contained in this document represents components of the legal health record. It is not the complete legal health record.[facility]
--- OUTSIDE RECORDS SUMMARY | 2025-04-09 18:52 | XMS_ITS | Encounter Summary ---
Author Organization [facility] Address [address] [facility] [address] [place] [address] Phone Care Team Providers Care Steel Tester Name Role Phone Phil Menjivar MD Unavailable [phone] Percy Werner MD Unavailable Phil Menjivar MD Primary Care Provider [phone] Phil Menjivar MD Unavailable [phone] Encounter Details Date Type Department Care Team (Latest Contact Info) Description 11/23/2021 Ancillary Orders [facility] Medical [facility] Medicine [address] [place] [address] Phil Menjivar MD 22 [facility], [address] [place] [address] [email or web address] Abnormal mammogram of both breasts [...] st Contact Info) Description 03/22/2025 Procedure Pass [address] [address] 11/25/2025 9:45 AM EDT Appointment [address] [address] Phil Menjivar MD [address] [facility], [address] [place] [address] documented as of this encounter Results * [...] both breasts Abnormal mammogram of both breasts Visit for screening mammogram documented in this encounter Additional Health Concerns Infection Onset Date Last Indicated Resolved Time COVID-19 06/18/2023 06/18/2023 07/09/2023 1:21 AM EST Assessment Noted Time PHQ-2 Depression Total Score: 0 10/12/19 4:05 PM EDT documented as of this encounter Care Teams Steel Tester Relationship Specialty Start Date End Date Phil Menjivar MD [address] [place] [address], [address] [address] PCP - General 06/07/17 Phil Menjivar MD [address] [place] [address], [address] [address] Historical LMR Provider 03/22/17 Percy Werner MD [address] [place] [address] [email or web address] Historical LMR Provider 03/22/17 Phil Menjivar MD [address] [place] [address], [address] [address] Insurance Assigned Provider 09/08/23 documented as of this encounter Additional Source Comments The information contained in this document represents components of the legal health record. It is not the complete legal health record.[facility]
--- OUTSIDE RECORDS SUMMARY | 2025-04-09 18:52 | XMS_ITS | Encounter Summary ---
Author Organization [facility] Address [address] [facility] [address] [place] [address] Phone Care Team Providers Care Director Business Travel Name Role Phone Phil Menjivar MD Unavailable [phone] Percy Werner MD Unavailable Phil Menjivar MD Primary Care Provider [phone] Phil Menjivar MD Unavailable [phone] Reason for Visit * Reason Comments Medication Refill Encounter Details Date Type Department Care Team (Late st Contact Info) Description 03/28/2024 Refill [facility] Medicine [address] [place] [phone] Phil Menjivar MD [address] [facility], [address] [place] [address] [email or web address] Medication Refill Social History Tobacco Use Types [...] Phil Menjivar MD - Family Medicine [facility] > Requested f/u: Return in about 4 [...] documented in this encounter Plan of Treatment Upcoming Encounters Date Type Department Care Team (Late st Contact Info) Description 03/22/2025 Procedure Pass [address] [address] 11/25/2025 9:45 AM EDT Appointment [address] [address] Phil Menjivar MD [address] [place] [address], [address] [address] [email or web address] documented as of this encounter Visit Diagnoses Not on filedocumented in this encounter Additional Health Concerns Assessment Noted Time PHQ-2 Depression Total Score: 0 11/30/19 24 4:58 PM EDT documented as of this encounter Care Teams Director Business Travel Relationship Specialty Start Date End Date Phil Menjivar MD [address] [place] [address], [address] [place] [address] [email or web address] PCP - General 06/07/17 Phil Menjivar MD [address] [place] [address], [address] [place] [address] [email or web address] Historical LMR Provider 03/22/17 Percy Werner MD [address] [place] [address], [address] [address] [email or web address] Historical LMR Provider 03/22/17 Phil Menjivar MD [address] [place] [address], [address] [place] [address] [email or web address] Insurance Assigned Provider 09/08/23 documented as of this encounter Additional Source Comments The information contained in this document represents components of the legal health record. It is not the complete legal health record.[facility]
--- OUTSIDE RECORDS SUMMARY | 2025-04-09 18:52 | XMS_ITS | Encounter Summary ---
Author Organization [facility] Address [address] [place] [address] [place] [address] Phone Care Team Providers Care Engineering Team Supervisor Name Role Phone Phil Menjivar MD Unavailable [phone] Percy Werner MD Unavailable Phil Menjivar MD Primary Care Provider + [phone] Phil Menjivar MD Unavailable [phone] Encounter Details Date Type Department Care Team (Late Contact Info) Description 11/23/2021 Procedure Pass [address] [address] Social History Tobacco Use Types Packs/Day Years [...] Upcoming Encounters Date Type Department Care Team ([facility] Contact Info) Description 03/22/[address] [address] 11/25/2025 9:45 AM EDT Appointment [facility], [facility] [address] [place] [address] Phil Menjivar MD [address] [place] [address], [address] [place] [address] documented as of this encounter Visit Diagnoses Not on filedocumented in this encounter Additional Health Concerns Infection Onset Date Last Indicated Resolved Time COVID-19 06/18/2023 06/18/2023 07/09/2023 1:21 AM EST Assessment Noted Time PHQ-2 Depression Total Score: 0 10/12/19 4:05 PM EDT documented as of this encounter Care Teams Engineering Team Supervisor Relationship Specialty Start Date End Date Phil Menjivar MD [address] [place] [address], [address] [place] [address] PCP - General 06/07/17 Phil Menjivar MD [address] [place] [address], [address] [place] [address] Historical LMR Provider 03/22/17 Percy Werner MD [address] [place] [address], [address] [address] Historical LMR Provider 03/22/17 Phil Menjivar MD [address] [place] [address], [address] [place] [address] Insurance Assigned Provider 09/08/23 documented as of this encounter Additional Source Comments The information contained in this document represents components of the legal health record. It is not the complete legal health record.[facility]
--- OUTSIDE RECORDS SUMMARY | 2025-04-09 18:53 | XMS_ITS | Encounter Summary ---
Author Organization [facility] Address [address] [place] [address] Phone Care Team Providers Care Rooms Director Name Role Phone Phil Menjivar MD Unavailable [phone] Percy Werner MD Unavailable Phil Menjivar MD Primary Care Provider + [phone] Phil Menjivar MD Unavailable [phone] Encounter Details Date Type Department Care Team (Late st Contact Info) Description 11/30/2023 Procedure Pass [facility], [facility] [address] [place] [address] Social History Tobacco Use Types Packs/Day Years [...] st Contact Info) Description 03/22/2025 Procedure Pass [address] [address] 11/25/2025 9:45 AM EDT Appointment [address] [address] Phil Menjivar MD [address] [place] [address], [address] [place] [address] documented as of this encounter Visit Diagnoses Not on filedocumented in this encounter Additional Health Concerns Assessment Noted Time PHQ-2 Depression Total Score: 0 11/30/19 24 4:58 PM EDT documented as of this encounter Care Teams Rooms Director Relationship Specialty Start Date End Date Phil Menjivar MD [address] [place] [address], [address] [place] [address] PCP - General 06/07/17 Phil Menjivar MD [address] [place] [address], [address] [place] [address] Historical LMR Provider 03/22/17 Percy Werner MD [address] [place] [address], [address] [place] [address] [email or web address] Historical LMR Provider 03/22/17 Phil Menjivar MD [address] [place] [address], [address] [place] [address] [email or web address] Insurance Assigned Provider 09/08/23 documented as of this encounter Additional Source Comments The information contained in this document represents components of the legal health record. It is not the complete legal health record.[facility]
--- OUTSIDE RECORDS SUMMARY | 2025-04-09 18:53 | XMS_ITS | Encounter Summary ---
Author Organization [facility] Address [address] [place] [address] Phone Care Team Providers Care Neighborhood Coordinator Name Role Phone Phil Menjivar MD Unavailable [phone] Percy Werner MD Unavailable Phil Menjivar MD Primary Care Provider + [phone] Phil Menjivar MD Unavailable [phone] Encounter Details Date Type Department Care Team (Late st Contact Info) Description 03/14/2023 Procedure Pass [facility] Admitting [facility] Virtual Department [address] [place] [address] Social History Tobacco Use Types Packs/Day Years [...] st Contact Info) Description 03/22/[address] [address] 11/25/2025 9:45 AM EDT Appointment [address] [address] Phil Menjivar MD [address] [place] [address], [address] [address] [email or web address] documented as of this encounter Visit Diagnoses Not on filedocumented in this encounter Additional Health Concerns Infection Onset Date Last Indicated Resolved Time COVID-19 06/18/2023 06/18/2023 07/09/2023 1:21 AM EST Assessment Noted Time PHQ-2 Depression Total Score: 0 10/12/19 22 4:05 PM EDT documented as of this encounter Care Teams Neighborhood Coordinator Relationship Specialty Start Date End Date Phil Menjivar MD [address] [place] [address], [address] [address] [email or web address] PCP - General 06/07/17 Phil Menjivar MD [address] [place] [address], [address] [place] [address] [email or web address] Historical LMR Provider 03/22/17 Percy Werner MD [address] [place] [address], [address] [address] [email or web address] Historical LMR Provider 03/22/17 Phil Menjivar MD [address] [place] [address], [address] [place] [address] [email or web address] Insurance Assigned Provider 09/08/23 documented as of this encounter Additional Source Comments The information contained in this document represents components of the legal health record. It is not the complete legal health record.[facility]
== END 2025-04-09 17:59 | disposition home or self-care (01) ==
LOC: HO.MRI 17:58
PROVIDERS: Visit Provider Internal Medicine
DX: M54.16 Radiculopathy, lumbar region (principal)
CPT/HCPCS: 72148

== ENCOUNTER → 2025-04-09 18:06 | Outpatient (BNV) | payer BC, SELFPAY | PROVIDERS: Visit Provider Radiology Diagnostic Radiology | DX: M47.27 Other spondylosis with radiculopathy, lumbosacral region (principal); M48.061 Spinal stenosis, lumbar region without neurogenic claudication | CPT/HCPCS: 72148 ==

== ENCOUNTER 2025-04-27 11:55 | Outpatient (AMB) | payer BC, SELFPAY ==
--- NOTE | 2025-04-27 11:56 | A.OFFVIS_ITS ---
Vital Signs 04/27/25 11:57 Height 5 ft 1.5 in BMI Reason not done Patient refused/unable BP 140/79 H Blood Pressure Location Lt brachial Position Sitting Respiration 16 Pulse 83 Pulse Source Pulse Oximeter Pulse Oximetry (%) 100 Oxygen Delivery Method Room Air Intake Visit Reasons: MRI FOLLOW UP Editor Dictionary Required: No Allergies Penicillins Allergy (Unknown, Verified 04/27/25 11:59) Rash hydrocodone (From Vicodin) Allergy (Verified 04/27/25 11:59) Rash sulfamethoxazole (From Bactrim) Allergy (Verified 04/27/25 11:59) face itches trimethoprim (From Bactrim) Allergy (Verified 04/27/25 11:59) face itches Medication List - Last Reconciled 04/27/25 by Lesa Cobos LPN bupropion HCl XL 300 mg PO DAILY clonazepam mg PO methylphenidate HCl ER 54 mg PO QAM mupirocin 2% 1 appl topical BID-TID spironolactone 50 mg PO BID topiramate 100 mg PO DAILY valacyclovir 500 mg PO DAILY HPI HPI MRI FOLLOW UP: Details: History of Present Illness The patient is a 54-year-old individual presenting with lumbar spine pain. The pain has progressed to involve the hips and occasionally the upper back and legs, possibly due to compensatory mechanisms. The patient reports difficulty in finding a comfortable position, which exacerbates the pain. The MRI of the lumbar spine shows no significant abnormalities except for a potential issue at the L4-5 facet joints, which may contribute to the symptoms. The patient has a history of mild scoliosis, which may be contributing to the muscle tightness and pain experienced. The patient has undergone two breast reduction surgeries due to discomfort from large breast size, which may have influenced the upper back pain. The patient has been experiencing pain since childhood, which has been exacerbated by physical changes over time. Pain Description - Onset and Timing: Pain has been present since childhood, with exacerbations over time. - Quality and Character: Pain is described as involving the lumbar spine, hips, and occasionally the upper back and legs. - Primary Location: Lumbar spine, with radiation to hips and upper back. - Exacerbating Factors: Difficulty in finding a comfortable position. Physical Exam - Appears afebrile. - Alert and oriented. - Mood and affect distressed by pain. - Follows and participates in conversation appropriately. Results - MRI: No significant abnormalities except hypertrophic changes at L4-5 facet joints. Pain Management - Affect: Pain impacts the patient's ability to find a comfortable position. - Analgesia: Discussion of potential facet injections and PRP therapy. - Activities of Daily Living: Pain affects mobility and comfort. [facility] Medical History Myofascial pain Lumbar paraspinal muscle spasm Piriformis muscle pain Sacroiliac joint dysfunction of both sides Social History Alcohol intake: current Alcohol intake frequency: holidays/special occasions only Patient Tobacco Use Status: Never used Tobacco Current occupational status: employed Current occupation: realtor Physical Exam Vital Signs: Last Vital Signs Pulse 83 04/27/25 11:57 Resp 16 04/27/25 11:57 BP 140/79 H 04/27/25 11:57 Pulse Ox 100 04/27/25 11:57 Oxygen Delivery Method Room Air 04/27/25 11:57 Assessment & Plan Assessment & Plan (1) Lumbar spondylosis: Code(s): M47.816 - Spondylosis without myelopathy or radiculopathy, lumbar region Category: Medical Plan Plan Patient was informed and verbally consented to the use of an ambient scribe for clinic note documentation during this visit. 1. Lumbar Spine Pain - Plan to perform PRP injections to bilateral L4-5 facets. - Consideration of facet injections for pain management. 2. Hip Pain - Plan to address hip pain through PRP injections and pain management strategies. 3. Mild Scoliosis - Monitor scoliosis and its impact on muscle tightness and pain. Discussion Notes I discussed with the patient the findings of the MRI, which showed no significant abnormalities except for a potential issue at the L4-5 facet joints. We talked about the option of facet injections and PRP therapy as potential treatments for the lumbar spine and hip pain. The patient was informed about the procedure details, including the need for someone to drive them post-procedure and the potential for increased stiffness initially. Patient Instructions - Plan for PRP injections on May 14 and arrange for transportation post- procedure. - Monitor pain levels and report any significant changes or concerns. - Follow up with the clinic if there are any questions or issues with the treatment plan. Coding Level of Care Code Est Pt Level 4 (48635) Diagnoses Lumbar spondylosis M47.816
[2025-04-27 11:57] VITALS: BP 140/79; PULSE 83; RESP 16; O2SAT 100
--- OUTSIDE RECORDS SUMMARY | 2025-04-27 15:53 | XMS_ITS | Encounter Summary ---
Author Organization [facility] Address [address] [place] [address] Phone Care Team Providers Care Boat Canvas Maker Installer Name Role Phone Louise Roldan ARLET Unavailable Phil Menjivar MD Unavailable [phone] Yuridia Dumont NP Unavailable [phone] Percy Werner MD Unavailable Alexandre Morton MD Unavailable [phone] Phil Menjivar MD Primary Care Provider + [phone] Phil Menjivar MD Unavailable [phone] Encounter Details Date Type Department Care Team (Late Contact Info) Description 04/02/2020 Procedure Pass [facility], [address] [address] Social History Tobacco Use Types Packs/Day Years [...] (Late Contact Info) Description 03/22/2025 Procedure Pass [facility] [address] [place] [address] 11/25/2025 9:45 AM EDT Appointment [facility] [address] [place] [address] Phil Menjivar MD [address] [place] [address], [address] [place] [address] documented as of this encounter Visit Diagnoses [...] documented as of this encounter Care Teams Boat Canvas Maker Installer Relationship Specialty Start Date End Date Phil Menjivar MD [address] [place] [address], [address] [place] [address] PCP - General 06/07/17 Louise Roldan CNM [address] [place] [address], [address] [place] [address] Historical LMR Provider 03/22/17 06/11/21 Phil Menjivar MD [address] [place] [address], [address] [place] [address] Historical LMR Provider 03/22/17 Yuridia Dumont NP [address] [place] [address] Historical LMR Provider 03/22/17 2 Percy Werner MD [address] [place] [address], [address] [place] [address] [email or web address] Historical LMR Provider 03/22/17 Alexandre Morton MD [address] [facility] Floor 1 [place] [address] [email or web address] Historical LMR Provider 03/22/17 06/11/21 Phil Menjivar MD [address] [place] [address], [address] [place] [address] [email or web address] Insurance Assigned Provider 09/08/23 documented as of this encounter Additional Source Comments The information contained in this document represents components of the legal health record. It is not the complete legal health record.[facility]
--- OUTSIDE RECORDS SUMMARY | 2025-04-27 15:53 | XMS_ITS | Encounter Summary ---
Author Organization [facility] Address [address] [place] [address] Phone Care Team Providers Care Publications Sales Representative Name Role Phone Louise Roldan ARLET Unavailable Phil Menjivar MD Unavailable [phone] Yuridia Dumont NP Unavailable [phone] Percy Werner MD Unavailable Alexandre Morton MD Unavailable [phone] Phil Menjivar MD Primary Care Provider + [phone] Phil Menjivar MD Unavailable [phone] Encounter Details Date Type Department Care Team (Late st Contact Info) Description 04/24/2019 Ancillary Orders [facility] Medical [facility] Medicine [address] [place] [address] Phil Menjivar MD [address] [facility], [address] [place], [place] [id number] [email or web address] Social History Tobacco Use Types Packs/Day Years [...] st Contact Info) Description 03/22/2025 Procedure Pass [address] [address] 11/25/2025 9:45 AM EDT Appointment [address] [address] Phil Menjivar MD [address] [place] [address], [address] [place] [address] documented as of this encounter Visit Diagnoses [...] documented as of this encounter Care Teams Publications Sales Representative Relationship Specialty Start Date End Date Phil Menjivar MD [address] [place] [address], [address] [place] [address] PCP - General 06/07/17 Louise Roldan CNM [address] [place] [address], [address] [place] [address] Historical LMR Provider 03/22/17 06/11/21 Phil Menjivar MD [address] [place] [address], [address] [place] [address] [email or web address] Historical LMR Provider 03/22/17 Yuridia Dumont NP 30 [place] [address] Historical LMR Provider 03/22/17 2 Percy Werner MD [address] [place] [address], [address] [place] [address] [email or web address] Historical LMR Provider 03/22/17 Alexandre Morton MD [address] [facility] Floor 1 [place] [address] [email or web address] Historical LMR Provider 03/22/17 06/11/21 Phil Menjivar MD [address] [facility], [address] [place] [address] [email or web address] Insurance Assigned Provider 09/08/23 documented as of this encounter Additional Source Comments The information contained in this document represents components of the legal health record. It is not the complete legal health record.[facility]
--- OUTSIDE RECORDS SUMMARY | 2025-04-27 15:53 | XMS_ITS | Encounter Summary ---
Author Organization [facility] Address [address] [place] [address] Phone Care Team Providers Care Net Web Developer Name Role Phone Phil Menjivar MD Unavailable [phone] Percy Werner MD Unavailable Phil Menjivar MD Primary Care Provider [phone] Phil Menjivar MD Unavailable [phone] Reason for Visit * Reason Comments Medication Refill Encounter Details Date Type Department Care Team (Late st Contact Info) Description 03/28/2024 Refill [facility] Medicine [address] [place] [id number] Phil Menjivar MD [address] [facility], [address] [place] [address] [email or web address] Medication Refill Social History Tobacco Use Types [...] Phil Menjivar MD - Family Medicine [facility] > Requested f/u: Return in about 4 [...] st Contact Info) Description 03/22/2025 Procedure Pass [address] [address] 11/25/2025 9:45 AM EDT Appointment [address] [address] Phil Menjivar MD [address] [place] [address], [address] [address] [email or web address] documented as of this encounter Visit Diagnoses Not on filedocumented in this encounter Additional Health Concerns Assessment Noted Time PHQ-2 Depression Total Score: 0 11/30/19 24 4:58 PM EDT documented as of this encounter Care Teams Net Web Developer Relationship Specialty Start Date End Date Phil Menjivar MD [address] [place] [address], [address] [place] [address] [email or web address] PCP - General 06/07/17 Phil Menjivar MD [address] [place] [address], [address] [place] [address] [email or web address] Historical LMR Provider 03/22/17 Percy Werner MD [address] [place] [address], [address] [address] [email or web address] Historical LMR Provider 03/22/17 Phil Menjivar MD [address] [place] [address], [address] [place] [address] [email or web address] Insurance Assigned Provider 09/08/23 documented as of this encounter Additional Source Comments The information contained in this document represents components of the legal health record. It is not the complete legal health record.[facility]
--- OUTSIDE RECORDS SUMMARY | 2025-04-27 15:53 | XMS_ITS | Encounter Summary ---
Author Organization [facility] Address [address] [place] [address] Phone Care Team Providers Care Rice Milling Supervisor Name Role Phone Louise Roldan ARLET Unavailable Phil Menjivar MD Unavailable [phone] Yuridia Dumont NP Unavailable [phone] Percy Werner MD Unavailable Alexandre Morton MD Unavailable [phone] Phil Menjivar MD Primary Care Provider + [phone] Phil Menjivar MD Unavailable [phone] Encounter Details Date Type Department Care Team (Late Contact Info) Description 04/02/2020 Procedure Pass [facility], [facility] [address] [place] [address] Social History Tobacco Use Types Packs/Day Years [...] (Late Contact Info) Description 03/22/2025 Procedure Pass [facility] [address] [place] [address] 11/25/2025 9:45 AM EDT Appointment [facility] [address] [place] [address] Phil Menjivar MD [address] [place] [address], [address] [place] [address] documented as of this encounter Visit Diagnoses [...] documented as of this encounter Care Teams Rice Milling Supervisor Relationship Specialty Start Date End Date Phil Menjivar MD [address] [place] [address], [address] [place] [address] PCP - General 06/07/17 Louise Roldan CNM [address] [place] [address], [address] [place] [address] Historical LMR Provider 03/22/17 06/11/21 Phil Menjivar MD [address] [place] [address], [address] [place] [address] Historical LMR Provider 03/22/17 Yuridia Dumont NP [address] [place] [address] Historical LMR Provider 03/22/17 2 Percy Werner MD [address] [place] [address], [address] [place] [address] [email or web address] Historical LMR Provider 03/22/17 Alexandre Morton MD [address] [facility] [address] 1 [place] [address] [email or web address] Historical LMR Provider 03/22/17 06/11/21 Phil Menjivar MD [address] [place] [address], [address] [place] [address] [email or web address] Insurance Assigned Provider 09/08/23 documented as of this encounter Additional Source Comments The information contained in this document represents components of the legal health record. It is not the complete legal health record.[facility]
--- OUTSIDE RECORDS SUMMARY | 2025-04-27 15:53 | XMS_ITS | Encounter Summary ---
Author Organization [facility] Address [address] [facility] [address] [place] [address] Phone Care Team Providers Care Uniform Designer Name Role Phone Louise Roldan ARLET Unavailable Phil Menjivar MD Unavailable [phone] Yuridia Dumont NP Unavailable [phone] Percy Werner MD Unavailable Alexandre Morton MD Unavailable [phone] Phil Menjivar MD Primary Care Provider +- [phone] Phil Menjivar MD Unavailable [phone] Encounter Details Date Type Department Care Team (Late st Contact Info) Description 04/24/2019 Ancillary Orders Virtual Department 30 [place] [address] Phil Menjivar MD [address] [facility], [address] [place] [address] [email or web address] Breast screening Social History Tobacco Use Types [...] Contact Info) Description 03/22/2025 Procedure Pass [address] [address] 11/25/2025 9:45 AM EDT Appointment [address] [address] Phil Menjivar MD [address] [place] [address], [address] [place] [address] [email or web address] documented as of this encounter Results * [...] DENSITY: There are scattered fibroglandular densities. POS -[id number] Narrative 05/14/2019 8:21 AM EST Bilateral full-field [...] DENSITY: There are scattered fibroglandular densities. POS -[id number] Phil Menjivar MD IMG MG EXAMS Final [...] documented as of this encounter Care Teams Uniform Designer Relationship Specialty Start Date End Date Phil Menjivar MD [address] [place] [address], [address] [place] [address] PCP - General 06/07/17 Louise Roldan CNM [address] [place] [address], [address] [place] [address] Historical LMR Provider 03/22/17 06/11/21 Phil Menjivar MD [address] [place] [address], [address] [place] [address] [email or web address] Historical LMR Provider 03/22/17 Yuridia Dumont HOME HEALTH NURSE [address] [place] [address] Historical LMR Provider 03/22/17 2 Percy Werner MD [address] [place] [address], [address] [address] [email or web address] Historical LMR Provider 03/22/17 Alexandre Morton MD [address] [facility] Floor 1 [place] [address] [email or web address] Historical LMR Provider 03/22/17 06/11/21 Phil Menjivar MD [address] [place] [address], [address] [place] [address] [email or web address] Insurance Assigned Provider 09/08/23 documented as of this encounter Additional Source Comments The information contained in this document represents components of the legal health record. It is not the complete legal health record.[facility]
--- OUTSIDE RECORDS SUMMARY | 2025-04-27 15:53 | XMS_ITS | Encounter Summary ---
Author Organization [facility] Address [address] [facility] [address] [place] [address] Phone Care Team Providers Care Sand Mixer Name Role Phone Phil Menjivar MD Unavailable [phone] Percy Werner MD Unavailable Phil Menjivar MD Primary Care Provider [phone]- [phone] Phil Menjivar MD Unavailable Encounter Details Date Type Department Care Team (Latest Contact Info) Description 11/23/2021 Ancillary Orders [facility] Medicine [address] [place] [address] Phil Menjivar MD 22 [facility], [address] [place] [address] [email or web address] Abnormal mammogram of both breasts [...] Contact Info) Description 03/22/2025 Procedure Pass [address] [address] 11/25/2025 9:45 AM EDT Appointment [address] [address] Phil Menjivar MD 22 [facility], [address] [place] [address] documented as of this encounter Results * [...] documented as of this encounter Care Teams Sand Mixer Relationship Specialty Start Date End Date Phil Menjivar MD [address] [place] [address], [address] [address] PCP - General 06/07/17 Phil Menjivar MD [address] [place] [address], [address] [address] Historical LMR Provider 03/22/17 Percy Werner MD [address] [place] [address] [email or web address] Historical LMR Provider 03/22/17 Phil Menjivar MD [address] [place] [address], [address] [address] Insurance Assigned Provider 09/08/23 documented as of this encounter Additional Source Comments The information contained in this document represents components of the legal health record. It is not the complete legal health record.[facility]
--- OUTSIDE RECORDS SUMMARY | 2025-04-27 15:53 | XMS_ITS | Encounter Summary ---
Author Organization [facility] Address [address] [place] [address] [place] [address] Phone Care Team Providers Care Signal Manager Name Role Phone Phil Menjivar MD Unavailable [phone] Percy Werner MD Unavailable Phil Menjivar MD Primary Care Provider + [phone] Phil Menjivar MD Unavailable [phone] Encounter Details Date Type Department Care Team (Late Contact Info) Description 11/23/2021 Procedure Pass [address] [address] Social History Tobacco Use Types Packs/Day Years [...] Upcoming Encounters Date Type Department Care Team ([facility] Contact Info) Description 03/22/[address] [address] 11/25/2025 9:45 AM EDT Appointment [facility] [address] [place] [address] Phil Menjivar MD [address] [place] [address], [address] [place] [address] documented as of this encounter Visit Diagnoses Not on filedocumented in this encounter Additional Health Concerns Infection Onset Date Last Indicated Resolved Time COVID-19 06/18/2023 06/18/2023 07/09/2023 1:21 AM EST Assessment Noted Time PHQ-2 Depression Total Score: 0 10/12/19 4:05 PM EDT documented as of this encounter Care Teams Signal Manager Relationship Specialty Start Date End Date Phil Menjivar MD [address] [place] [address], [address] [place] [address] PCP - General 06/07/17 Phil Menjivar MD [address] [place] [address], [address] [place] [address] Historical LMR Provider 03/22/17 Percy Werner MD [address] [place] [address], [address] [address] Historical LMR Provider 03/22/17 Phil Menjivar MD [address] [place] [address], [address] [place] [address] Insurance Assigned Provider 09/08/23 documented as of this encounter Additional Source Comments The information contained in this document represents components of the legal health record. It is not the complete legal health record.[facility]
--- OUTSIDE RECORDS SUMMARY | 2025-04-27 15:54 | XMS_ITS | Clinical Summary ---
Author Organization [facility] Address [address] [address] Phone Care Team Providers Care President Ceo & Founder Name Role Phone Phil Menjivar MD Unavailable [phone] Percy Werner MD Unavailable Phil Menjivar MD Primary Care Provider [phone] Phil Menjivar MD Unavailable Allergies Active Allergy [...] Reviewed [facility] findings including increased risk of OH/heart disease, breast cancer and VTE/stroke on HRT [...] st Contact Info) Description 03/22/2025 Procedure Pass [address] [address] 11/25/2025 9:45 AM EDT Appointment [address] [address] Phil Menjivar MD 22 [facility], [address] [place] [address] Health Maintenance Due Date Last Done Comments [...] EST) SODIUM 136 133 - 146 mmol/L [facility] POTASSIUM 3.3 3.3 - 5.1 mmol/L [facility] CHLORIDE 98 96 - 108 mmol/L [facility] CO2 23 21 - 35 mmol/L [facility] BUN 20(H) 6 - 19 mg/dL [facility] CREATININE 0.90 0.5 - 1.5 mg/dL [facility] GLUCOSE 85 70 - 99 mg/dL [facility] ALBUMIN 4.8 3.9 - 4.8 g/dL [facility] TOTAL PROTEIN 8.0 6.5 - 8.0 g/dL [facility] CALCIUM 10.0 8.4 - 10.3 mg/dL [facility] ALKALINE PHOSPHATASE 131(H) 39 - 117 U/L [facility] TOTAL BILIRUBIN 0.4 0.0 - 1.2 mg/dL [facility] AST 29 0 - 37 U/L [facility] ALT 22 0 - 40 U/L [facility] GLOBULIN 3.2 1 - 4.8 g/dL [facility] EGFR 76 >59 mL/min/1.7 3m2 [facility] Comment:Estimated glomerular filtration rate calculated using the CKD-EPI refit equation. ANION GAP 18 10 - 20 mmol/L [facility] Blood 05/08/2024 3:48 PM EST 05/08/2024 3:53 PM EST us Phil Menjivar MD LAB BLOOD BKR ORDERABLES F inal Result Performing Organization Address City/State/[facility] Co de Phone Number [address] [address] * BI MAMMOGRAM SCREENING WITH TOMOSYNTHESIS WITH [...] Garcia MD - 03/14/2023 1:05 PM EDT [facility] Patient Name: Miguel Ramires Attending MD:: MAGI GARCIA MD, Procedure Date: 03/14/2023 1:05 PM Date of : 1970 Age: 52 Admit Type: Outpatient Gender: Female Room: [facility] 05 Referring MD: PHIL MENJIVAR MD Exam Type: Colonoscopy Indications: Colon cancer screening [facility]: Family history of 1st-degree relative with colon [...] 1:05 PM Procedure Code(s): --- Professional --- 44297, Colonoscopy, flexible; with removal of tumor(s), polyp(s), or other lesion(s) by snare technique --- Technical --- 13456, Colonoscopy, flexible; with removal of tumor(s), polyp(s), or other lesion(s) by snare technique CPT copyright 2021 [employer]. All rights reserved. The codes documented in this report are preliminary and upon spindle sander reviewmay be revised to meet current compliance requirements. Procedure Date: 03/14/2023 1:05:[address] [place], [place] [address] Phil Menjivar MD GI PROCEDURE ORDERABLES Fi nal Result * Hepatitis C antibody, qualitative (02/13/2022 3:50 PM EDT) HCV NON-REACTIV E NON-REACTI VE [facility] Blood 02/13/2022 3:50 PM EDT 02/13/2022 3:57 PM EDT Phil Menjivar MD LAB BLOOD BKR ORDERABLES F inal Result [address] [address] * Pap Smear (10/06/2020 12:00 AM EDT) 10/06/2020 10/07/2020 8:4 1 AM EDT Narrative SEE NARRATIVE - 10/13/2020 3:24 PM EDT [address] [address] Urologist: Risa Oakes MD APPEALS ANALYST Cytology Report FINAL DIAGNOSIS A. PAP SMEAR (SUREPATH) CE: SPECIMEN ADEQUACY: Satisfactory for evaluation; transformation zone present. INTERPRETATION: NEGATIVE FOR INTRAEPITHELIAL LESION OR MALIGNANCY. Reactive changes. Electronically Signed Out By: MD Octavio Hess CT([facility]) By his/her signature above, the pathologist listed [...] 52, 56, 58, 59, 66, 68) by [employer] Onclarity HR-HPV analysis. Clinical correlation is advised. This HPV test was performed at [facility], [address] [place] [address]. This test has been FDA approved for SurePath cervical cytology specimens. The accuracy and precision of this test for all other specimen sources has been verified in the Cytopathology Laboratory of the [facility] and has not been cleared or approved by the U.S. Food and Drug Administration. Clinical correlation is advised. CLINICAL HISTORY Date of Last Menstrual Period: Not Provided Menstrual History: Post Menopausal Other Clinical Conditions: Screening Pap SPECIMEN SOURCE A: PAP SMEAR (SUREPATH) CE Patient Name: MIGUEL RAMIRES : 1970 (Age: 49) Sex: F Institution[facility] Location: [facility] Date of Collection: 10/06/2020 Date of Reported: 10/13/2020 15:24 Results to: Debra Abebe MD us Debra Abebe MD CYTOLOGY ORDERABLES Final Res ult SEE NARRATIVE * (ABNORMAL) Lipid panel (05/20/2019 2:55 PM EST) HDL 123 mg/dL [facility] Comment: Interpretation <40 mg/dL: Low HDL cholesterol (major risk factor for CHD) Greater than or equal to 60 mg/dL: High HDL cholesterol ( negative risk factor for CHD) HDL - cholesterol is affected by a number of factors, e.g. smoking, excerise, hormones, sex and age. CHOLESTEROL 194 0 - 240 mg/dL [facility] TRIGLYCERIDES 84 30 - 160 mg/dL [facility] LDL 54 50 - 129 mg/dL [facility] Comment: LDL levels in terms of risk for coronary heart disease: <100 mg/dL: Optimal 100-129 mg/dL: Near or above optimal 130-159 mg/dL: Borderline high 160-189 mg/dL: High >190 mg/dL: Very High CARDIAC RISK RATIO 1.6(L) 3.3 - 4.4 C [facility] Blood 05/20/2019 2:55 PM EST 05/20/2019 2:59 PM EST us Phil Menjivar MD LAB BLOOD BKR ORDERABLES F inal Result [address] [address] from Last 3 Months or Most Recently Relevant to Health Maintenance Insurance [facility] [place] [address] [place] [address] PPO EPO [facility] PPO [facility]PO [facility] PPO EPO [facility] PPO EPO [facility] PPO EPO [facility] PPO EPO Advance Directives For more information, please contact: [phone] (9AM - 5PM [facility], Sunday-Sunday) Documents on File Type Date Recorded Patient Operations Recruiter Expl anation Healthcare Proxy 06/11/2019 4:27 PM * Full Code (Presumed) (Latest Code Status on File) Date Activated Date Inactivated Comments 06/10/2019 12:16 PM 06/10/2019 11:23 PM Care Teams President Ceo & Founder Relationship Specialty Start Date End Date Phil Menjivar MD [address] [place] [address], [address] [place] [address] PCP - General 06/07/17 Phil Menjivar MD [address] [place] [address], [address] [place] [address] [email or web address] Historical LMR Provider 03/22/17 Percy Werner MD [address] [place] [address], [facility] [address] [place] [address] [email or web address] Historical LMR Provider 03/22/17 Phil Menjivar MD [address] [place] [address], [address] [place] [address] [email or web address] Insurance Assigned Provider 09/08/23 Additional Source Comments The information contained in this document represents components of the legal health record. It is not the complete legal health record.[facility]
--- OUTSIDE RECORDS SUMMARY | 2025-04-27 15:54 | XMS_ITS | Encounter Summary ---
Author Organization [facility] Address [address] [facility] [address] [place] [address] Phone Care Team Providers Care Oracle Apex Developer Name Role Phone Phil Menjivar MD Unavailable [phone] Percy Werner MD Unavailable Phil Menjivar MD Primary Care Provider + [phone] Phil Menjivar MD Unavailable [phone] Encounter Details Date Type Department Care Team (Late st Contact Info) Description 11/30/2023 Procedure Pass [facility] [address] [place] [address] Social History Tobacco Use Types Packs/Day Years [...] st Contact Info) Description 03/22/2025 Procedure Pass [address] [address] 11/25/2025 9:45 AM EDT Appointment [address] [address] Phil Menjivar MD [address] [place] [address], [address] [place] [address] documented as of this encounter Visit Diagnoses Not on filedocumented in this encounter Additional Health Concerns Assessment Noted Time PHQ-2 Depression Total Score: 0 11/30/19 24 4:58 PM EDT documented as of this encounter Care Teams Oracle Apex Developer Relationship Specialty Start Date End Date Phil Menjivar MD [address] [place] [address], [address] [place] [address] PCP - General 06/07/17 Phil Menjivar MD [address] [place] [address], [address] [place] [address] Historical LMR Provider 03/22/17 Percy Werner MD [address] [place] [address], [address] [place] [address] [email or web address] Historical LMR Provider 03/22/17 Phil Menjivar MD [address] [place] [address], [address] [place] [address] [email or web address] Insurance Assigned Provider 09/08/23 documented as of this encounter Additional Source Comments The information contained in this document represents components of the legal health record. It is not the complete legal health record.[facility]
--- OUTSIDE RECORDS SUMMARY | 2025-04-27 15:54 | XMS_ITS | Encounter Summary ---
Author Organization [facility] Address [address] [facility] [address] [place] [address] Phone Care Team Providers Care Health Occupations Teacher Name Role Phone Phil Menjivar MD Unavailable Percy Werner MD Unavailable Phil Menjivar MD Primary Care Provider + [phone] Phil Menjivar MD Unavailable [phone] Encounter Details Date Type Department Care Team (Late st Contact Info) Description 10/31/2022 Procedure Pass [facility] Endoscopy Admitting Dept Virtual Department 30 [place] [address] Social History Tobacco Use Types Packs/Day Years [...] st Contact Info) Description 03/22/2025 Procedure Pass [address] [address] 11/25/2025 9:45 AM EDT Appointment [address] [address] Phil Menjivar MD [address] [place] [address] [email or web address] documented as of this encounter Visit Diagnoses Not on filedocumented in this encounter Additional Health Concerns Infection Onset Date Last Indicated Resolved Time COVID-19 06/18/2023 06/18/2023 07/09/2023 1:21 AM EST Assessment Noted Time PHQ-2 Depression Total Score: 0 10/12/19 22 4:05 PM EDT documented as of this encounter Care Teams Health Occupations Teacher Relationship Specialty Start Date End Date Phil Menjivar MD [address] [place] [address], [address] [address] PCP - General 06/07/17 Phil Menjivar MD [address] [place] [address], [address] [address] Historical LMR Provider 03/22/17 Percy Werner MD [address] [address], [address] [address] Historical LMR Provider 03/22/17 Phil Menjivar MD [address] [place] [address] [email or web address] Insurance Assigned Provider 09/08/23 documented as of this encounter Additional Source Comments The information contained in this document represents components of the legal health record. It is not the complete legal health record.[facility]
--- OUTSIDE RECORDS SUMMARY | 2025-04-27 15:54 | XMS_ITS | Encounter Summary ---
Author Organization [facility] Address [address] [place] [address] Phone Care Team Providers Care Vocational Placement Specialist Name Role Phone Louise Roldan ARLET Unavailable Phil Menjivar MD Unavailable [phone] Yuridia Dumont NP Unavailable [phone] Percy Werner MD Unavailable Alexandre Morton MD Unavailable [phone] Phil Menjivar MD Primary Care Provider + [phone] Phil Menjivar MD Unavailable [phone] Encounter Details Date Type Department Care Team ([facility] Contact Info) Description 06/10/2019 Procedure Pass [place] Admitting Dept - Virtual Department [address] [place] [address] Social History Tobacco Use Types Packs/Day Years [...] (Late Contact Info) Description 03/22/2025 Procedure Pass [facility] 30 [place] [address] 11/25/2025 9:45 AM EDT Appointment [address] [address] Phil Menjivar MD [address] [place] [address], [address] [place] [address] documented as of this encounter Visit Diagnoses [...] documented as of this encounter Care Teams Vocational Placement Specialist Relationship Specialty Start Date End Date Phil Menjivar MD [address] [place] [address], [address] [place] [address] PCP - General 06/07/17 Louise Roldan CNM [address] [place] [address], [address] [place] [address] Historical LMR Provider 03/22/17 06/11/21 Phil Menjivar MD [address] [place] [address], [address] [place] [address] Historical LMR Provider 03/22/17 Yuridia Dumont NP 30 [place] [address] Historical LMR Provider 03/22/17 2 Percy Werner MD [address] [place] [address], [address] [place] [address] [email or web address] Historical LMR Provider 03/22/17 Alexandre Morton MD 22 [facility] Floor 1 [place] [address] [email or web address] Historical LMR Provider 03/22/17 06/11/21 Phil Menjivar MD [address] [place] [address], [address] [place] [address] [email or web address] Insurance Assigned Provider 09/08/23 documented as of this encounter Additional Source Comments The information contained in this document represents components of the legal health record. It is not the complete legal health record.[facility]
--- OUTSIDE RECORDS SUMMARY | 2025-04-27 15:54 | XMS_ITS | Encounter Summary ---
Author Organization [facility] Address [address] [facility] [address] [place] [address] Phone Care Team Providers Care Data Control Assistant Name Role Phone Phil Menjivar MD Unavailable [phone] Percy Werner MD Unavailable Phil Menjivar MD Primary Care Provider + [phone] Phil Menjivar MD Unavailable [phone] Encounter Details Date Type Department Care Team (Late st Contact Info) Description 03/14/2023 Procedure Pass [facility] Admitting Dept Virtual Department 30 [place] [address] Social History Tobacco Use Types Packs/Day Years [...] st Contact Info) Description 03/22/2025 Procedure Pass [address] [address] 11/25/2025 9:45 AM EDT Appointment [address] [address] Phil Menjivar MD [address] [place] [address], [address] [address] [email or web address] documented as of this encounter Visit Diagnoses Not on filedocumented in this encounter Additional Health Concerns Infection Onset Date Last Indicated Resolved Time COVID-19 06/18/2023 06/18/2023 07/09/2023 1:21 AM EST Assessment Noted Time PHQ-2 Depression Total Score: 0 10/12/19 22 4:05 PM EDT documented as of this encounter Care Teams Data Control Assistant Relationship Specialty Start Date End Date Phil Menjivar MD [address] [place] [address], [address] [address] PCP - General 06/07/17 Phil Menjivar MD [address] [place] [address], [address] [place] [address] [email or web address] Historical LMR Provider 03/22/17 Percy Werner MD [address] [place] [address], [address] [address] [email or web address] Historical LMR Provider 03/22/17 Phil Menjivar MD [address] [place] [address], [address] [place] [address] [email or web address] Insurance Assigned Provider 09/08/23 documented as of this encounter Additional Source Comments The information contained in this document represents components of the legal health record. It is not the complete legal health record.[facility]
== END 2025-04-27 12:43 | disposition home or self-care (01) ==
LOC: HO.PMC 11:56
PROVIDERS: Visit Provider Internal Medicine
DX: M47.816 Spondylosis without myelopathy or radiculopathy, lumbar region (principal)
CPT/HCPCS: 99214

== ENCOUNTER 2025-05-14 09:06 | Outpatient (AMB) | payer SELFPAY ==
[2025-05-14 09:15] VITALS: BP 110/76; PULSE 90; RESP 16; O2SAT 97
--- NOTE | 2025-05-14 09:15 | A.OFFVIS_ITS ---
Vital Signs 05/14/25 09:15 05/14/25 10:20 BP 110/76 140/88 H Blood Pressure Location Lt brachial Lt brachial Position Sitting Sitting Respiration 16 16 Pulse 90 86 Pulse Source Pulse Oximeter Pulse Oximeter Pulse Oximetry (%) 97 98 Oxygen Delivery Method Room Air Room Air Intake Visit Reasons: Grady L4-L5 Facet PRP Medical Billing Coordinator Required: No Allergies Penicillins Allergy (Unknown, Verified 05/14/25 09:15) Rash hydrocodone (From Vicodin) Allergy (Verified 05/14/25 09:15) Rash sulfamethoxazole (From Bactrim) Allergy (Verified 05/14/25 09:15) face itches trimethoprim (From Bactrim) Allergy (Verified 05/14/25 09:15) face itches Medication List - Last Reconciled 05/14/25 by Lesa Cobos LPN bupropion HCl XL 300 mg PO DAILY clonazepam mg PO methylphenidate HCl ER 54 mg PO QAM mupirocin 2% 1 appl topical BID-TID spironolactone 50 mg PO BID topiramate 100 mg PO DAILY valacyclovir 500 mg PO DAILY HPI HPI Grady L4-L5 Facet PRP: Details: Patient presents for scheduled procedure. Denies any recent cough, cold, infection, fever or other significant changes in medical history since last office visit. FORMERLY [facility] Medical History Myofascial pain Lumbar paraspinal muscle spasm Piriformis muscle pain Sacroiliac joint dysfunction of both sides Social History Alcohol intake: current Alcohol intake frequency: holidays/special occasions only Patient Tobacco Use Status: Never used Tobacco Current occupational status: employed Current occupation: realtor Physical Exam Vital Signs: Last Vital Signs Pulse 90 05/14/25 09:15 Resp 16 05/14/25 09:15 BP 110/76 05/14/25 09:15 Pulse Ox 97 05/14/25 09:15 Oxygen Delivery Method Room Air 05/14/25 09:15 Office Procedures Platelet Rich Plasma Injection PRP Joint Injection After informed written consent was obtained, pre-procedure oxygen saturation, heart rate, and blood pressure were recorded. An 18 gauge butterfly needle was used to obtain 50 mL of whole blood from the right antecubital fossa. This was then mixed with 9 mL anticoagulant citrate dextrose solution. The 60 mL mixture was counter balanced to within 1 g and spun at 3500 rpm for 10 minutes. Platelet poor plasma was then drawn using a bench top press model. 6 mL of slightly leukocyte rich PRP was isolated in a 10 cc syringe. Lumbar Intra-articular Facet Injections, Bilateral L4/L5 After obtaining written consent, pre-procedure blood pressure and pulse were recorded and are in the nursing record for review. The patient was placed in a prone position. The respective lumbosacral area was prepped with chloraprep and draped in sterile fashion. The target facet joints were visualized using ipsilateral oblique fluoroscopy to reveal the joint line. The skin over the target facet joints was anesthetized with 0.5% lidocaine. A 22 gauge 3.5 inch needle with a small bend on the tip was advanced towards the target facet joint under fluoroscopic guidance until bony contact. The needle was then maneuvered and rotated until it slid into the joint slightly. No paresthesias were elicited with needle placement and aspiration was negative for blood and CSF. Next, 3 mL PRP was injected intra and periarticularly. The identical procedure was performed on the other side. The skin was cleansed and a sterile bandage was applied. Following the procedure the patient's vital signs were stable. The patient tolerated the procedure well and no complications were encountered. Following the procedure the patient's vital signs were stable. The patient was discharged home in good condition with post-procedural instructions. Time Out: Immediately prior to the procedure, the following was verbally confirmed that there is a signed consent form and that the correct patient, planned procedure, site and side are consistent with documentation and that necessary equipment and/or blood products are available prior to the start of the case. Complications: none EBL: <5 cc XCELL Platelet Plasma - 0232T 60 mL All charges added?: Procedure code (CPT) selection complete Assessment & Plan Assessment & Plan (1) Lumbar spondylosis: Code(s): M47.816 - Spondylosis without myelopathy or radiculopathy, lumbar region Category: Medical Plan Patient is status post bilateral intra and yarely-articular L4-5 facet PRP injections. Patient tolerated procedure well and was discharged home in stable condition with discharge instructions. All questions were answered. We will follow-up via telephone or in clinic to assess response to therapy. A follow-up appointment was made during today's visit. Orders: Orders [place] guidance in treatment room Today Mis Benito APRN, POLICY VALUE CALCULATOR M47.816 - Spondylosis without myelopathy or radiculopathy, lumbar region AMB Platelet Rich Plasma (PRP) Injection Today Orville Kirkland MD M47.816 - Spondylosis without myelopathy or radiculopathy, lumbar region Medications: New oxycodone no driving while taking this medication 5 mg PO BID PRN 10 tabs 0RF pain 5 days Mis Benito APRN, POLICY VALUE CALCULATOR Coding Level of Care Code Procedure Only Diagnoses Lumbar spondylosis M47.816 CPT Codes XCELL Kit 60mL ([id number])
[2025-05-14 10:20] VITALS: BP 140/88; PULSE 86; RESP 16; O2SAT 98
== END 2025-05-14 11:11 | disposition home or self-care (01) ==
LOC: HO.PMCPRC 09:06
PROVIDERS: PCP Family Medicine; Visit Provider Internal Medicine
DX: M47.816 Spondylosis without myelopathy or radiculopathy, lumbar region (principal)
CPT/HCPCS: 0232T